=== PATIENT | male | born 1955 | race Caucasian/White ===

== ENCOUNTER 2022-03-04 07:59 | Emergency (ER) | payer OTHER, SELFPAY ==
[2022-03-04 08:07] VITALS: BP 158/76; PULSE 96; RESP 18; TEMP 36.6; O2SAT 98; BMI 24.4
[2022-03-04 08:09] VITALS: BP 130/72; PULSE 95; RESP 18; TEMP 36.6; O2SAT 98
--- NOTE | 2022-03-04 08:11 | XR_ITS ---
WS: [id number] AP portable erect, AP portable supine, 03/04/2022 Clinical Data: abd pain Comparison: KUB, 02/14/2007. Findings: There is an aortic iliac stent graft. There are vascular occlusion coils overlying the right side of the S1 vertebral body. The central portion of the abdomen shows a decreased amount of gas and there c ould be a mass in the central abdomen. The bowel gas is located in the periphery of the abdomen. Ther e is a moderate amount of fecal material. There are clips in the right upper quadrant from a cholecys tectomy. Midline sternotomy sutures are seen. No free air is seen beneath the diaphragms. XR/XR KUB portable [id number] Impression: 1. Decreased amount of gas in the central abdomen which could indicate a centra l abdominal mass. 2. Aortic stent graft.
[2022-03-04 08:41] LABS: Basophils % 0.3 %; Eosinophils # 0.1 10^3/uL (0.0-0.8); Eosinophils % 0.6 %; Hematocrit 37.9 % (42.0-52.0); Hemoglobin 11.6 g/dL (11.7-16.6); Mean Corpuscular HGB Conc 30.6 g/dL (30.0-36.0); Mean Corpuscular Hemoglobin 30.2 pg (28.0-34.0); Mean Corpuscular Volume 98.7 fl (80-94); Mean Platelet Volume 9.2 fL (7.4-10.4); Monocytes # 0.8 10^3/uL (0.2-0.9); Monocytes % 8.8 %; Neutrophils % 77.6 %; Nucleated Red Blood Cells % 0 %; Platelet Count 158 10^3/cmm (130-400); Red Blood Count 3.84 10^6/uL (4.1-5.3); Red Cell Distribution Width 16.4 % (12.1-15.1); White Blood Count 8.6 10^3/uL (4.0-10.0)
--- NOTE | 2022-03-04 08:43 | ED_ITS ---
HPI - Abdominal Pain General: Chief Complaint: Abdominal Pain Stated Complaint: Post op pain in abd Time Seen by Provider: 03/04/22 08:11 Source: patient Mode of arrival: ambulatory History of Present Illness: 67-year-old male who presents to the emergency room with complaints of abdominal discomfort. He has been significantly c onstipated states he has had a bowel movement for the last 4 days. He has tried MiraLAX and stool softening tablets but has not tried any stimulants. 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 He was transferred to a hospital in [place] where he underwent surgery he survived the episode of several grafts. The patient is concerned that something about the surgery may be limiting blood flow to his gut which is causing problems. He has not had any vomiting he has not had any hematochezia melena hematemesis or coffee-ground emesis. He has had a little bit of dysuria. MD elicited complaint: abdominal pain Pertinent past history: none Onset (ago): day(s) (4) Location: Diffuse Severity: moderate Quality: cramping Radiation: none Exacerbating factors: nothing Associated Symptoms: Reports bloating and constipation; Denies chills, coffee ground emesis, diarrhea, dysuria, fever(s), hematochezia, hematemesis, melena, nausea and vomiting Review of Systems Const: Denies: fever(s), chills, body aches, change in appetite, fatigue or malaise ENMT: Denies: throat pain, ear or mastoid pain, nasal discharge or nasal congestion Card: Denies: chest pain, edema, dyspnea on exertion or orthopnea Resp: Denies: dyspnea, productive cough or non-productive cough GI: Reports: abdominal pain, constipation and bloating; Denies: nausea, vomiting, hematemesis, coffee ground emesis, diarrhea, hematochezia or melena : Denies: flank pain, dysuria, urinary frequency or urinary urgency Skin/Breast: Denies: rash or pruritus PFSH ED PFSH: Medical History (Updated 03/04/22 @ 10:29 by Lazaro Bazan DO) Abdominal aortic aneurysm Diabetes mellitus Hyperlipidemia Hypertension Surgical History (Updated 03/04/22 @ 10:29 by Lazaro Bazan DO) H/O abdominal aortic aneurysm repair Social History (Updated 03/04/22 @ 10:30 by Lazaro Bazan DO) Smoking and tobacco status: former smoker Alcohol intake: former Physical Exam Const: GENERAL APPEARANCE: cooperative and comfortable ORIENTATION/CONSCIOUSNESS: Yes awake, Yes oriented to person, Yes oriented to place and Yes oriented to time HENMT: COMMON NORMALS: normocephalic, atraumatic and hearing grossly normal bilaterally HEAD & SCALP: normocephalic and atraumatic Resp: COMMON NORMALS: normal respiratory effort, No retractions, No use of accessory muscles and clear to auscultation bilaterally AUSCULTATION: clear to auscultation bilaterally Cardio: COMMON NORMALS: regular rate, regular rhythm and No murmurs present (Cardio) RATE: regular rate RHYTHM: regular rhythm GI: COMMON NORMALS: Soft to palpation and No hepatosplenomegaly present AUSCULTATION: Yes normoactive bowel sounds PALPATION: Yes Soft to palpation, No Tenderness to palpation present (GI), No Guarding due to palpation present (GI) and Yes No hepatosplenomegaly present OTHER: Supraumbilical wound defect is packed there is no evidence of induration drainage redness or erythema Extremity: COMMON NORMALS: normal to inspection, capillary refill normal, no clubbing, cyanosis or edema, no calf tenderness and no pedal edema Neuro: SENSORIUM/ORIENTATION: Yes oriented to person, Yes oriented to place and Yes oriented to time Skin: COMMON NORMALS: no rashes or lesions noted GENERAL SKIN EXAM: no rashes or lesions noted Course Vital Signs: Vital signs: Vital Signs Temperature 97.8 F 03/04/22 08:09 Pulse Rate 95 03/04/22 08:09 Respiratory Rate 18 03/04/22 08:51 Blood Pressure 130/72 03/04/22 08:09 Pulse Oximetry 98 03/04/22 08:51 Oxygen Delivery Me thod 03/04/22 08:51 MDM - Abdominal Pain Medical Decision Making Labs and imaging reviewed. Moderate constipation otherwise unremarkable. I did examine his abdominal wound looks good there is no redness no erythema no induration duration. We will discharge him home to use lactulose as needed return if he has further problems. Courage him to continue the MiraLAX and stool softeners for preventative measures for constipation in the future. Medical Records I reviewed the patient's medical records. Lab Data I reviewed the patient's lab results. : 03/04/22 08:35 03/04/22 08:35 Labs/Radiology: Radiology Impressions KUB X-Ray 03/04/22 08:11 Impression: 1. Decreased amount of gas in the central abdomen which could indicate a central abdominal mass. 2. Aortic stent graft. Laboratory Results WBC 8.6 10^3/uL (4.0-10.0) 03/04/22 08:35 RBC 3.84 10^6/uL (4.1-5.3) L 03/04/22 08:35 Hgb 11.6 g/dL (11.7-16.6) L 03/04/22 08:35 Hct 37.9 % (42.0-52.0) L 03/04/22 08:35 MCV 98.7 fl (80-94) H 03/04/22 08:35 MCH 30.2 pg (28.0-34.0) 03/04/22 08:35 MCHC 30.6 g/dL (30.0-36.0) 03/04/22 08:35 RDW 16.4 % (12.1-15.1) H 03/04/22 08:35 Plt Count 158 10^3/cmm (130-400) 03/04/22 08:35 MPV 9.2 fL (7.4-10.4) 03/04/22 08:35 Neut % (Auto) 77.6 % 03/04/22 08:35 Lymph % (Auto) 12.0 % 03/04/22 08:35 [place] % (Auto) 8.8 % 03/04/22 08:35 Eos % (Auto) 0.6 % 03/04/22 08:35 Baso % (Auto) 0.3 % 03/04/22 08:35 Neut # (Auto) 6.70 10^3/uL (1.8-7.7) 03/04/22 08:35 Lymph # (Auto) 1.0 10^3/uL (0.8-4.8) 03/04/22 08:35 [place] # (Auto) 0.8 10^3/uL (0.2-0.9) 03/04/22 08:35 Eos # (Auto) 0.1 10^3/uL (0.0-0.8) 03/04/22 08:35 Baso # (Auto) 0.0 10^3/uL (0.0-0.1) 03/04/22 08:35 Nucleated RBC % (auto) 0 % 03/04/22 08:35 Nucleated RBCs # 0.0 /100WBC 03/04/22 08:35 Sodium 135 mmol/L (136-145) L 03/04/22 08:35 Potassium 4.3 mmol/L (3.5-5.1) 03/04/22 08:35 Chloride 100 mmol/L (98-107) 03/04/22 08:35 Carbon Dioxide 22 mmol/L (22-29) 03/04/22 08:35 Anion Gap 17.3 (5-19) 03/04/22 08:35 BUN 20 mg/dL (8-23) 03/04/22 08:35 Creatinine 1.3 mg/dL (0.7-1.2) H 03/04/22 08:35 GFR Calculation 54.7 mL/min (90-130) L 03/04/22 08:35 Glucose 204 mg/dL (65-115) H 03/04/22 08:35 Calculated Osmolality 288 mOsm/kg (285-295) 03/04/22 08:35 Calcium 10.2 mg/dL (8.5-10.5) 03/04/22 08:35 Total Bilirubin 0.7 mg/dL (0.15-1.2) 03/04/22 08:35 AST 12 U/L (0-40) 03/04/22 08:35 ALT 8 U/L (0-41) 03/04/22 08:35 Alkaline Phosphatase 80 U/L (40-130) 03/04/22 08:35 Total Protein 8.0 g/dL (6.6-8.7) 03/04/22 08:35 Albumin 4.0 g/dL (3.5-5.2) 03/04/22 08:35 Globulin 4.0 g/dL (1.3-4.6) 03/04/22 08:35 Lipase 70 U/L (13-60) H 03/04/22 08:35 Urine Color Yellow (Yellow) 03/04/22 09:06 Urine Appearance Clear (CLEAR) 03/04/22 09:06 Urine pH 5 (5-7) 03/04/22 09:06 Ur Specific [place] 1.020 (1.005-1.030) 03/04/22 09:06 Urine Protein 2+ (Negative) H 03/04/22 09:06 Urine Glucose (UA) 4+ (Normal) H 03/04/22 09:06 Urine Ketones 1+ (Negative) H 03/04/22 09:06 Urine Blood 2+ (Negative) H 03/04/22 09:06 Urine Nitrate Negative (Negative) 03/04/22 09:06 Urine Bilirubin Neg (Negative) 03/04/22 09:06 Urine Urobilinogen Norm mg/dL (Negative) 03/04/22 09:06 Ur Leukocyte Esterase Negative (Negative) 03/04/22 09:06 Urine RBC 0-4 /hpf (0-2) H 03/04/22 09:06 Urine WBC 0-4 /hpf (0-5) H 03/04/22 09:06 Ur Squamous Epith Cells 0-4 /hpf (0-5) H 03/04/22 09:06 Amorphous Sediment Not Reportable 03/04/22 09:06 Urine Bacteria Trace /hpf (NONE) 03/04/22 09:06 Hyaline Casts 5-10 /lpf H 03/04/22 09:06 Discharge Plan Discharge Clinical Impression: Constipation Prescriptions: New lactulose 10 gram/15 mL solution 30 g PO Q4H PRN (Reason: laxative effect) 1 Days Qty: 540 0RF Rx Instructions: until desired laxative effect No Action multivitamin Tablet 1 tab PO DAILY atorvastatin 40 mg tablet 40 mg PO DAILY Miralax 17 gram Powder In Packet 17 g PO DAILY PRN (Reason: Constipation) lisinopril 20 mg tablet 20 mg PO BID pioglitazone 45 mg tablet 45 mg PO DAILY amlodipine 5 mg tablet 5 mg PO DAILY tramadol 50 mg tablet 50 - 100 mg PO Q4H PRN (Reason: Pain) glimepiride 2 mg tablet 2 mg PO DAILY Colace 100 mg Capsule 100 mg PO DAILY oxycodone 5 mg tablet 5 mg PO Q6H PRN (Reason: Pain) metoprolol tartrate 25 mg tablet 12.5 mg PO BID fenofibrate nanocrystallized 145 mg tablet 145 mg PO DAILY Jentadueto 2.5-1,000 mg tablet 1 tab PO BID Discharge Orders: Discharge ED (Routine); Ordered 03/04/22 Ordered By: Lazaro Bazan Discharge Diet: Full LIquid Discharge Activity: Increase activity as tolerated Activity Restrictions/Additional Instructions: Use lactulose as a stimulant to relieve the constipation would use a dose every 4 hours until desired effect achieved. Continue stool softeners and/or MiraLAX as a preventative measure for constipation. Coding Level of Care Code ED Bleach Packer for Lencho Redmond
[2022-03-04 08:51] VITALS: RESP 18; O2SAT 98
--- NOTE | 2022-03-04 08:52 | PC.PHAR ---
pt and pts states pt hasnt been taking plavix 75mg daily (filled 01/12/22) and 81mg aspirin daily since december states the dr told them to not take- states pt has appt with Feb-
[2022-03-04 09:02] LABS: Alanine Aminotransferase 8 U/L (0-41); Alkaline Phosphatase 80 U/L (40-130); Anion Gap 17.3 (5-19); Aspartate Amino Transferase 12 U/L (0-40); Blood Urea Nitrogen 20 mg/dL (8-23); Calcium 10.2 mg/dL (8.5-10.5); Carbon Dioxide 22 mmol/L (22-29); Chloride 100 mmol/L (98-107); Glomerular Filtration Rate 54.7 mL/min (90-130); Glucose 204 mg/dL (65-115); Lipase 70 U/L (13-60); Osmolality Calculated 288 mOsm/kg (285-295); Potassium 4.3 mmol/L (3.5-5.1); Sodium 135 mmol/L (136-145); Total Bilirubin 0.7 mg/dL (0.15-1.2)
[2022-03-04 09:20] LABS: Urine Appearance Clear (CLEAR); Urine Color Yellow (Yellow)
[2022-03-04 09:21] LABS: Add Urine Microscopic? YES; Bilirubin Urine Neg (Negative); Blood Urine 2+ (Negative); Glucose Urine UA 4+ (Normal); Ketones Urine 1+ (Negative); Leukocyte Esterase Urine Negative (Negative); Nitrate Urine Negative (Negative); Protein Urine 2+ (Negative); Urobilinogen Urine Norm (Negative); pH Urine 5 (5-7)
[2022-03-04 09:26] LABS: Bacteria Urine TRACE /hpf; RBC Urine 0-4 /hpf (0-2); Squamous Epithelial Cell Urine 0-4 /hpf (0-5); WBC Urine 0-4 /hpf (0-5)
[2022-03-04 09:27] LABS: Add Urine Culture? No
== END 2022-03-04 10:26 | disposition home or self-care (01) ==
PROVIDERS: Emergency Provider Family Medicine; PCP Nurse Practitioner Family
DX: K59.00 Constipation, unspecified (principal); Z79.84 Long term (current) use of oral hypoglycemic drugs; E11.9 Type 2 diabetes mellitus without complications; E78.5 Hyperlipidemia, unspecified; I10 Essential (primary) hypertension; Z87.891 Personal history of nicotine dependence
CPT/HCPCS: 74018; 80053; 81001; 83690; 85025; 99284

== ENCOUNTER → 2022-03-07 11:36 | Outpatient (BNVA) | payer OTHER, SELFPAY | PROVIDERS: PCP Nurse Practitioner Family; Visit Provider Nurse Practitioner Family | DX: Z01.89 Encounter for other specified special examinations (principal) | CPT/HCPCS: 87070; 87077; 87176; 87186; 87205 ==

== ENCOUNTER 2022-04-30 10:51 | Outpatient (CLI) | payer OTHER, SELFPAY | END 2022-04-30 10:52 | disposition home or self-care (01) | LOC: LAB 10:52 | PROVIDERS: PCP Nurse Practitioner Family; Visit Provider Nurse Practitioner Family | DX: Z48.812 Encounter for surgical aftercare following surgery on the circulatory system (principal) | CPT/HCPCS: 87070; 87077; 87186 ==

== ENCOUNTER 2022-09-20 07:40 | Emergency (ER) | payer OTHER, SELFPAY ==
[2022-09-20 08:06] VITALS: BP 165/89; PULSE 81; RESP 17; O2SAT 99
[2022-09-20] MEDS: ketorolac 30 mg/mL INJ IVP (08:28)
[2022-09-20] MEDS: dexamethasone 10 mg/mL INJ IVP (08:28)
[2022-09-20] MEDS: orphenadrine 30 mg/mL Inj 2 mL 60 MG IVP (08:28)
[2022-09-20 08:39] VITALS: BP 165/89
--- NOTE | 2022-09-20 08:47 | W.ED.EXTPRO ---
HPI - Extremity Problem General: Chief complaint: Extremity Problem,Nontraumatic Stated complaint: Left Leg sciatic Nerve Time Seen by Provider: 09/20/22 07:52 Source: patient Mode of arrival: ambulatory History of Present Illness: 67-year-old male presents emergency room complaining of pain in the left lower back radiating to his buttock and down into his leg and lateral aspect of his leg. Began overnight is gotten progressively worsened. He has normal sensation in his lower extremities he is not having difficulty with bowel or bladder control MD Complaint: extremity pain Onset (ago): day(s) Pain Consistency: constant Location: left Quality: sharp Radiation: none and distal Relieving factors: nothing Exacerbating factors: nothing Associated symptoms: Deny arthralgias, chest pain, fever(s), myalgias, rash or short of breath Review of Systems Const: Denies: fever(s), chills, fatigue or malaise ENMT: Denies: throat pain, ear or mastoid pain, nasal discharge or nasal congestion Card: Denies: chest pain, palpitations, irregular heart rhythm or edema Resp: Denies: dyspnea, productive cough or non-productive cough GI: Denies: abdominal pain, nausea, vomiting, hematemesis, coffee ground emesis, diarrhea, constipation, bloating, hematochezia or melena : Denies: flank pain, dysuria, urinary frequency or urinary urgency Skin/Breast: Reports: pruritus; Denies: rash [facility] ED PFSH: Medical History Abdominal aortic aneurysm Diabetes mellitus Hyperlipidemia Hypertension Surgical History H/O abdominal aortic aneurysm repair Social History Smoking and tobacco status: former smoker Alcohol intake: former Physical Exam Const: COMMON NORMALS: no acute distress GENERAL APPEARANCE: cooperative and comfortable ORIENTATION/CONSCIOUSNESS: Yes awake, Yes oriented to person, Yes oriented to place and Yes oriented to time HENMT: COMMON NORMALS: normocephalic, atraumatic and hearing grossly normal bilaterally HEAD & SCALP: normocephalic and atraumatic Resp: COMMON NORMALS: normal respiratory effort, No retractions, No use of accessory muscles and clear to auscultation bilaterally AUSCULTATION: clear to auscultation bilaterally Cardio: COMMON NORMALS: regular rate, regular rhythm and No murmurs present (Cardio) RATE: regular rate RHYTHM: regular rhythm GI: COMMON NORMALS: Soft to palpation and No hepatosplenomegaly present AUSCULTATION: Yes normoactive bowel sounds PALPATION: Yes Soft to palpation, No Tenderness to palpation present (GI), No Guarding due to palpation present (GI) and Yes No hepatosplenomegaly present Extremity: COMMON NORMALS: normal to inspection, capillary refill normal, no clubbing, cyanosis or edema, no calf tenderness and no pedal edema OTHER: Sensation motor strength lower extremities 5/5. Deep tendon reflexes +2/4 at the patellar tendon dorsum plantarflexion strength is 5 of 5. Neuro: SENSORIUM/ORIENTATION: Yes oriented to person, Yes oriented to place and Yes oriented to time Skin: COMMON NORMALS: no rashes or lesions noted GENERAL SKIN EXAM: no rashes or lesions noted Course Vital Signs: Vital signs: Vital Signs Pulse Rate 63 09/20/22 09:49 Respiratory Rate 18 09/20/22 09:49 Blood Pressure 144/99 09/20/22 09:49 Pulse Oximetry 97 09/20/22 09:49 Oxygen Delivery Me thod 09/20/22 08:06 MDM - Extremity (Nontraumatic) Medical Decision Making Significant improvement in pain with treatments given in the emergency room discharge home with steroid taper anti-inflammatories and muscle relaxers. Medical Records I reviewed the patient's medical records. Lab Data I reviewed the patient's lab results. Discharge Plan Discharge Patient Disposition: Home Clinical Impression: Acute left lumbar radiculopathy Condition: Stable Prescriptions: New prednisone 20 mg tablet 20 mg PO TID Qty: 15 0RF Rx Instructions: 1 p.o. 3 times daily x3 days, 1 p.o. twice daily x2 days, 1 p.o. daily x2 days diclofenac sodium 75 mg tablet,delayed release (DR/EC) 75 mg PO Q12H PRN (Reason: pain) Qty: 20 0RF tizanidine 4 mg capsule 4 mg PO Q6H PRN (Reason: muscle spasticity) Qty: 20 0RF Rx Instructions: do not exceed 3 doses per 24 hrs Lyrica 75 mg capsule 75 mg PO BID Qty: 60 0RF No Action levofloxacin 500 mg tablet 500 mg PO DAILY Qty: 10 0RF ciprofloxacin HCl [Cipro] 500 mg tablet 500 mg PO BID 10 Days Qty: 20 0RF multivitamin Tablet 1 tab PO DAILY atorvastatin 40 mg tablet 40 mg PO DAILY Miralax 17 gram Powder In Packet 17 g PO DAILY PRN (Reason: Constipation) lisinopril 20 mg tablet 20 mg PO BID pioglitazone 45 mg tablet 45 mg PO DAILY amlodipine 5 mg tablet 5 mg PO DAILY tramadol 50 mg tablet 50 - 100 mg PO Q4H PRN (Reason: Pain) glimepiride 2 mg tablet 2 mg PO DAILY Colace 100 mg Capsule 100 mg PO DAILY oxycodone 5 mg tablet 5 mg PO Q6H PRN (Reason: Pain) metoprolol tartrate 25 mg tablet 12.5 mg PO BID fenofibrate nanocrystallized 145 mg tablet 145 mg PO DAILY Jentadueto 2.5-1,000 mg tablet 1 tab PO BID Discharge Orders: Discharge ED (Routine); Ordered 09/20/22 Ordered By: Lazaro Bazan Referrals: Annika Richardson APN [Primary Care Provider] - Discharge Diet: Usual diet Discharge Activity: Increase activity as tolerated Patient Instructions: Opioid Safety, Pain Management Activity Restrictions/Additional Instructions: You are seen today for back pain with radicular pain into the left leg. Discharge home to start Lyrica 75 mg twice daily scheduled prednisone taper begin tomorrow. Use diclofenac and tizanidine as needed. Case management make arrangements for you to follow-up with the orthopedic spine clinic. Coding Level of Care Code ED Civil Engineer'S Aide for Lencho Redmond
[2022-09-20 09:49] VITALS: BP 144/99; PULSE 63; RESP 18; O2SAT 97
== END 2022-09-20 09:51 | disposition home or self-care (01) ==
PROVIDERS: Emergency Provider Family Medicine; PCP Nurse Practitioner Family
DX: M54.16 Radiculopathy, lumbar region (principal); E11.9 Type 2 diabetes mellitus without complications; E78.5 Hyperlipidemia, unspecified; I10 Essential (primary) hypertension; Z87.891 Personal history of nicotine dependence
CPT/HCPCS: 96374; 96375; 99284; J1100; J1885; J2360

== ENCOUNTER 2023-01-11 23:37 | Emergency (ER) | payer OTHER, SELFPAY ==
[2023-01-11 23:46] VITALS: BP 140/65; PULSE 109; RESP 16; TEMP 36.7; O2SAT 96; BMI 21.6
[2023-01-12 00:28] LABS: Basophils % 0.2 %; Eosinophils % 0.2 %; Hematocrit 29.8 % (42.0-52.0); Hemoglobin 8.9 g/dL (11.7-16.6); Lymphocytes # 0.3 10^3/uL (0.8-4.8); Lymphocytes % 4.8 %; Mean Corpuscular HGB Conc 29.9 g/dL (30.0-36.0); Mean Corpuscular Hemoglobin 29.8 pg (28.0-34.0); Mean Corpuscular Volume 99.7 fl (80-94); Mean Platelet Volume 10.6 fL (7.4-10.4); Monocytes # 0.1 10^3/uL (0.2-0.9); Neutrophils # 6.03 10^3/uL (1.8-7.7); Neutrophils % 92.5 %; Nucleated Red Blood Cells % 0 %; Platelet Count 99 10^3/cmm (130-400); Red Blood Count 2.99 10^6/uL (4.1-5.3); Red Cell Distribution Width 17.2 % (12.1-15.1); White Blood Count 6.5 10^3/uL (4.0-10.0)
[2023-01-12 00:46] LABS: Alanine Aminotransferase 22 U/L (0-41); Albumin Level 3.2 g/dL (3.5-5.2); Alkaline Phosphatase 127 U/L (40-130); Anion Gap 16.5 (5-19); Aspartate Amino Transferase 15 U/L (0-40); Blood Urea Nitrogen 39 mg/dL (8-23); Calcium 9.4 mg/dL (8.5-10.5); Carbon Dioxide 26 mmol/L (22-29); Chloride 97 mmol/L (98-107); Globulin 3.2 g/dL (1.3-4.6); Glomerular Filtration Rate 74.1 mL/min (90-130); Glucose 296 mg/dL (65-115); Lipase 30 U/L (13-60); Osmolality Calculated 300 mOsm/kg (285-295); Potassium 4.5 mmol/L (3.5-5.1); Sodium 135 mmol/L (136-145); Total Bilirubin 0.5 mg/dL (0.15-1.2); Total Protein 6.4 g/dL (6.6-8.7)
--- NOTE | 2023-01-12 01:10 | CTR_ITS ---
PROCEDURE INFORMATION: Exam: CT Abdomen And Pelvis With Contrast Exam date and time: 01/12/2023 1:20 AM Age: 67 years old Clinical indication: Abdominal pain; Generalized; Prior surgery; Surgery date: 6+ months; Surgery type: Aaa repair, cholecystectomy; Additional info: Abd pain TECHNIQUE: Imaging protocol: Computed tomography of the abdomen and pelvis with contrast. Radiation optimization: All CT scans at this facility use at least one of these dose optimization techniques: automated exposure control; mA and/or kV adjustment per patient size (includes targeted exams where dose is matched to clinical indication); or iterative reconstruction. Contrast material: OMNI 350; Contrast volume: 100 ml; Contrast route: INTRAVENOUS (IV); REPORTING DATA: Count of CT and Cardiac NM exams in prior 12 months: This patient has received 0 known CTs and 0 known cardiac nuclear medicine studies in the 12 months prior to the current study. COMPARISON: CR XR KUB portable [id number] 03/04/2022 8:19 AM RADIATION DOSE METRICS: Total DLP (mGy-cm): 861.51 FINDINGS: Lungs: The visualized lung bases are devoid of infiltrates, effusions . There are no pneumothoraces. Heart: There is no pericardial effusion. Liver: Normal. No mass. Gallbladder and bile ducts: There is mild intrahepatic ductal dilatation. Patient is status post cholecystectomy. The common bile duct measures 5.4 mm which is within normal limits for the patient's age. Pancreas: Pancreas is unremarkable. Spleen: The spleen is bulbous in its posteromedial aspect with hypodensity, this measures approximally 63.7 x 60.1 mm, this may represent an infarct however an underlying abscess can not be excluded. Recommend clinical correlation. Adrenal glands: The adrenal glands are within normal limits. Kidneys and ureters: The kidneys enhance uniformly. There are few subcentimeter hypodensities in the renal cortex, statistically, these are considered to be cysts. There is no hydroureter or obstructing renal stone noted. There is no hydroureter. The urinary bladder is moderately distended with contrast layering within it. Stomach and bowel: The stomach is minimally distended with thick aranda. There are no abnormally dilated bowel loops. There is diverticular disease with no evidence of diverticulitis. The rectum is full of feces. There is evidence of prior bowel surgical clips in the region of the cecum. There is an extensive amount of feces in the entire colon. Appendix: No evidence of appendicitis. Intraperitoneal space: Unremarkable. No free air. No significant fluid collection. Vasculature: There is diffuse atherosclerotic disease. The origins of the celiac, SMA, renal arteries are patent. There is an infrarenal abdominal aortic stent graft in position. There is good apposition proximally. The aneurysmal sac measures 55.0 x 51.6 mm. 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 The limbs of the stent graft are patent. As this was not a noncontrast and arterial phase study, the endoleak can not be commented on accurately. 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 The left common iliac artery with with the endograft limb measures 14.4 mm. There has been coiling of the right internal iliac artery. The remainder of the iliac arteries are patent but severely diseased distally. The portal vein is patent. Lymph nodes: Unremarkable. No enlarged lymph nodes. Urinary bladder: See Kidneys and ureters finding. Reproductive: The prostate measures 41.4 mm and is prominent. Bones/joints: There are multiple lytic lesions noted in the iliac bones with the left being greater than the right. There is a lytic lesions noted in the spine. Soft tissues: Unremarkable. CT/CT abdomen pelvis w con* [id number] IMPRESSION: 1. Bulbous spleen with a focal area of hypodensity, this measures 63.7 x 60.1 mm, this may represent ischemia or an abscess, recommend clinical correlation. 2. Status post endovascular aneurysm repair (the stent graft is patent and there adequate seal zones), currently the residual aneurysmal sac measures 55.0 x 51.6 mm. There is evidence of an endoleak however, it can not be adequately named as this was not done in 3 phases. 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 There is no evidence of a leak. 3. Multiple lytic lesions in the iliac bones and the spine. COMMENTS: Consistent with the [employer]'s Incidental Findings Committee white paper (J Am Roger Radiol 2018): Any incidental renal lesion less than 1 cm or classified as too small to characterize, or any incidental cystic renal lesion characterized as simple-appearing, is likely benign. No follow-up imaging is recommended for these lesions per consensus recommendations based on imaging criteria.
--- NOTE | 2023-01-12 01:15 | W.ED.ABDPA2 ---
HPI - Abdominal Pain General: Chief Complaint: Abdominal Pain Stated Complaint: abd pain Time Seen by Provider: 01/12/23 00:39 Source: patient Mode of arrival: ambulatory Limitations: no limitations History of Present Illness: 67-year-old male states he has been having abdominal pain throughout the day. He states diffuse pain he rates a 7 out of 10. 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 States he feels like he is full of air he has not had any vomiting but has had nausea denies any fever denies any worsening proving factors. Associated Symptoms: Denies chills, diarrhea, fever(s), nausea and vomiting Review of Systems Const: Denies: fever(s), chills, body aches or change in appetite ENMT: Denies: throat pain or dental pain Card: Denies: chest pain Resp: Denies: dyspnea GI: Reports: abdominal pain; Denies: nausea, vomiting or diarrhea Musc: Denies: neck pain or back pain Skin/Breast: Denies: rash Neuro: Denies: headache(s) PFSH ED PFSH: Medical History Abdominal aortic aneurysm Diabetes mellitus Hyperlipidemia Hypertension Surgical History H/O abdominal aortic aneurysm repair Social History Smoking and tobacco status: former smoker Alcohol intake: former Physical Exam Const: COMMON NORMALS: no acute distress, patient oriented x3 and healthy appearing HENMT: COMMON NORMALS: normocephalic and atraumatic HEAD & SCALP: normocephalic and atraumatic Neck/C-Spine: COMMON NORMALS: full ROM and supple Chest: COMMONS NORMALS: normal inspection of the chest and normal palpation of entire chest wall Resp: COMMON NORMALS: normal respiratory effort, No retractions, No use of accessory muscles and clear to auscultation bilaterally AUSCULTATION: clear to auscultation bilaterally Cardio: COMMON NORMALS: regular rate, regular rhythm and No murmurs present (Cardio) RATE: regular rate RHYTHM: regular rhythm GI: COMMON NORMALS: Normal to inspection, nondistended, normoactive bowel sounds present, Soft to palpation and no masses PALPATION: Yes Soft to palpation OTHER: diffuse tenderness Extremity: COMMON NORMALS: normal to inspection and full ROM Neuro: COMMON NORMALS: patient oriented x3, moves all extremities and no focal motor deficits Psych: COMMON NORMALS: mental status grossly normal, Normal thought process present and cooperative THOUGHT PROCESS: Normal thought process present Skin: COMMON NORMALS: no rashes or lesions noted and no wounds GENERAL SKIN EXAM: no rashes or lesions noted Course Vital Signs: Vital signs: Vital Signs Temperature 98.0 F 01/11/23 23:46 Pulse Rate 88 01/12/23 03:00 Respiratory Rate 18 01/12/23 03:00 Blood Pressure 118/65 01/12/23 03:00 Pulse Oximetry 98 01/12/23 03:00 MDM - Abdominal Pain Medical Decision Making Patient presents here with pain likely from his lytic lesions on his left iliac and from his radiation blood works normal CT shows hypodensity in the spleen he has no pain over his spleen to palpation his white count is normal no signs of abscess patient is stable for discharge follow-up PCP and return if worsening Lab Data 01/12/23 00:20 01/12/23 00:20 Labs/Radiology: Radiology Impressions Abdomen/Pelvis CT 01/12/23 01:10 IMPRESSION: 1. Bulbous spleen with a focal area of hypodensity, this measures 63.7 x 60.1 mm, this may represent ischemia or an abscess, recommend clinical correlation. 2. Status post endovascular aneurysm repair (the stent graft is patent and there adequate seal zones), currently the residual aneurysmal sac measures 55.0 x 51.6 mm. There is evidence of an endoleak however, it can not be adequately named as this was not done in 3 phases. 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 There is no evidence of a leak. 3. Multiple lytic lesions in the iliac bones and the spine. COMMENTS: Consistent with the [employer]'s Incidental Findings Committee white paper (J Am Roger Radiol 2018): Any incidental renal lesion less than 1 cm or classified as too small to characterize, or any incidental cystic renal lesion characterized as simple-appearing, is likely benign. No follow-up imaging is recommended for these lesions per consensus recommendations based on imaging criteria. Laboratory Results WBC 6.5 10^3/uL (4.0-10.0) 01/12/23 00:20 RBC 2.99 10^6/uL (4.1-5.3) L 01/12/23 00:20 Hgb 8.9 g/dL (11.7-16.6) L 01/12/23 00:20 Hct 29.8 % (42.0-52.0) L 01/12/23 00:20 MCV 99.7 fl (80-94) H 01/12/23 00:20 MCH 29.8 pg (28.0-34.0) 01/12/23 00:20 MCHC 29.9 g/dL (30.0-36.0) L 01/12/23 00:20 RDW 17.2 % (12.1-15.1) H 01/12/23 00:20 Plt Count 99 10^3/cmm (130-400) L 01/12/23 00:20 MPV 10.6 fL (7.4-10.4) H 01/12/23 00:20 Neut % (Auto) 92.5 % 01/12/23 00:20 Lymph % (Auto) 4.8 % 01/12/23 00:20 [place] % (Auto) 2.0 % 01/12/23 00:20 Eos % (Auto) 0.2 % 01/12/23 00:20 Baso % (Auto) 0.2 % 01/12/23 00:20 Neut # (Auto) 6.03 10^3/uL (1.8-7.7) 01/12/23 00:20 Lymph # (Auto) 0.3 10^3/uL (0.8-4.8) L 01/12/23 00:20 [place] # (Auto) 0.1 10^3/uL (0.2-0.9) L 01/12/23 00:20 Eos # (Auto) 0.0 10^3/uL (0.0-0.8) 01/12/23 00:20 Baso # (Auto) 0.0 10^3/uL (0.0-0.1) 01/12/23 00:20 Nucleated RBC % (auto) 0 % 01/12/23 00:20 Nucleated RBCs # 0.0 /100WBC 01/12/23 00:20 Sodium 135 mmol/L (136-145) L 01/12/23 00:20 Potassium 4.5 mmol/L (3.5-5.1) 01/12/23 00:20 Chloride 97 mmol/L (98-107) L 01/12/23 00:20 Carbon Dioxide 26 mmol/L (22-29) 01/12/23 00:20 Anion Gap 16.5 (5-19) 01/12/23 00:20 BUN 39 mg/dL (8-23) H 01/12/23 00:20 Creatinine 1.0 mg/dL (0.7-1.2) 01/12/23 00:20 GFR Calculation 74.1 mL/min (90-130) L 01/12/23 00:20 Glucose 296 mg/dL (65-115) H 01/12/23 00:20 Calculated Osmolality 300 mOsm/kg (285-295) H 01/12/23 00:20 Calcium 9.4 mg/dL (8.5-10.5) 01/12/23 00:20 Total Bilirubin 0.5 mg/dL (0.15-1.2) 01/12/23 00:20 AST 15 U/L (0-40) 01/12/23 00:20 ALT 22 U/L (0-41) 01/12/23 00:20 Alkaline Phosphatase 127 U/L (40-130) 01/12/23 00:20 Total Protein 6.4 g/dL (6.6-8.7) L 01/12/23 00:20 Albumin 3.2 g/dL (3.5-5.2) L 01/12/23 00:20 Globulin 3.2 g/dL (1.3-4.6) 01/12/23 00:20 Lipase 30 U/L (13-60) 01/12/23 00:20 Discharge Plan Discharge Patient Disposition: Home Clinical Impression: Abdominal pain Condition: Stable Prescriptions: No Action levofloxacin 500 mg tablet 500 mg PO DAILY Qty: 10 0RF ciprofloxacin HCl [Cipro] 500 mg tablet 500 mg PO BID 10 Days Qty: 20 0RF multivitamin Tablet 1 tab PO DAILY atorvastatin 40 mg tablet 40 mg PO DAILY Miralax 17 gram Powder In Packet 17 g PO DAILY PRN (Reason: Constipation) lisinopril 20 mg tablet 20 mg PO BID pioglitazone 45 mg tablet 45 mg PO DAILY amlodipine 5 mg tablet 5 mg PO DAILY tramadol 50 mg tablet 50 - 100 mg PO Q4H PRN (Reason: Pain) glimepiride 2 mg tablet 2 mg PO DAILY Colace 100 mg Capsule 100 mg PO DAILY oxycodone 5 mg tablet 5 mg PO Q6H PRN (Reason: Pain) metoprolol tartrate 25 mg tablet 12.5 mg PO BID fenofibrate nanocrystallized 145 mg tablet 145 mg PO DAILY Jentadueto 2.5-1,000 mg tablet 1 tab PO BID prednisone 20 mg tablet 20 mg PO TID Qty: 15 0RF Rx Instructions: 1 p.o. 3 times daily x3 days, 1 p.o. twice daily x2 days, 1 p.o. daily x2 days diclofenac sodium 75 mg tablet,delayed release (DR/EC) 75 mg PO Q12H PRN (Reason: pain) Qty: 20 0RF tizanidine 4 mg capsule 4 mg PO Q6H PRN (Reason: muscle spasticity) Qty: 20 0RF Rx Instructions: do not exceed 3 doses per 24 hrs Lyrica 75 mg capsule 75 mg PO BID Qty: 60 0RF Discharge Orders: Discharge ED (Routine); Ordered 01/12/23 Ordered By: Elyssa Yeh Referrals: Annika Richardson APN [Primary Care Provider] - 1-3 days Discharge Diet: Advance as tolerated Discharge Activity: Resume usual activity Patient Instructions: Abdominal Pain (ED) Coding Level of Care Code ED Sport Psychologist for Lencho Redmond
[2023-01-12] MEDS: iohexol 350 mg/mL 500 mL Btl (per mL) IV (01:17)
[2023-01-12 01:42] VITALS: RESP 16
[2023-01-12] MEDS: ondansetron 2 mg/ML SDV 2 mL 4 MG IVP (01:42)
[2023-01-12] MEDS: HYDROmorphone 1 mg/mL INJ 1 mL IVP (01:42)
[2023-01-12 01:44] VITALS: BP 145/75; PULSE 96; RESP 16; O2SAT 99
[2023-01-12 03:00] VITALS: BP 118/65; PULSE 88; RESP 18; O2SAT 98
== END 2023-01-12 03:07 | disposition home or self-care (01) ==
PROVIDERS: Emergency Provider Emergency Medicine; PCP Nurse Practitioner Family
DX: R10.9 Unspecified abdominal pain (principal); Z79.84 Long term (current) use of oral hypoglycemic drugs; Z79.899 Other long term (current) drug therapy; E11.9 Type 2 diabetes mellitus without complications; E78.5 Hyperlipidemia, unspecified; I10 Essential (primary) hypertension; Z87.891 Personal history of nicotine dependence; Z85.830 Personal history of malignant neoplasm of bone
CPT/HCPCS: 36415; 74177; 80053; 83690; 85025; 96374; 96375; 99285; J1170; J2405; Q9967

== ENCOUNTER 2023-03-06 18:51 | Emergency (ER) | payer OTHER, SELFPAY ==
[2023-03-06 18:53] VITALS: BP 94/55; PULSE 84; RESP 18; TEMP 36.7; O2SAT 96; BMI 25.1
[2023-03-06 19:59] VITALS: BP 75/47; PULSE 77; RESP 20; O2SAT 94
--- NOTE | 2023-03-06 20:10 | XRR_ITS ---
PROCEDURE INFORMATION: Exam: XR Abdomen Exam date and time: 03/06/2023 8:23 PM Age: 68 years old Clinical indication: Constipation; Additional info: Constipation, swelling TECHNIQUE: Imaging protocol: Radiologic exam of the abdomen. Views: Frontal supine view of the abdomen. 1 View. COMPARISON: CT abdomen pelvis w con* [id number] 01/12/2023 1:20 AM FINDINGS: Tubes, catheters and devices: Embolization coils in the right internal iliac artery are stable in position. Heart/Mediastinum: There is an aortobi-iliac endovascular stent. Gastrointestinal tract: No evidence for bowel obstruction or perforation. Intraperitoneal space: No free intraperitoneal air. Organs: Stable findings consistent with a previous cholecystectomy with surgical clips in the right upper quadrant. No organomegaly. Vasculature: Atherosclerotic changes in the visualized arteries. Bones/joints: Degenerative changes in the spine, sacroiliac joints, and hips. XR/XR abdomen 1V* [id number] IMPRESSION: 1. No evidence for bowel obstruction or perforation. 2. Incidental/nonacute findings are listed in the report.
--- NOTE | 2023-03-06 20:10 | XRR_ITS ---
PROCEDURE INFORMATION: Exam: XR Chest Exam date and time: 03/06/2023 8:22 PM Age: 68 years old Clinical indication: Other: Edema TECHNIQUE: Imaging protocol: Radiologic exam of the chest. Views: 1 view. COMPARISON: CT abdomen pelvis w con* [id number] 01/12/2023 1:20 AM FINDINGS: Tubes, catheters and devices: Right upper extremity PICC with the tip at the superior vena cava. Lungs: Mild interstitial pulmonary edema with superimposed atelectasis versus pneumonia in the right middle lobe, left lingula, and right and left lower lobes. Pleural spaces: Moderate right and small left pleural effusions. No pneumothorax. Heart/Mediastinum: Stable mild enlargement of the cardiac silhouette. Mediastinal contours are unremarkable. Bones/joints: Poststernotomy changes in the chest. Patient has had a previous fusion in the cervical and upper thoracic spine. Degenerative changes in the spine and shoulders. Bones are diffusely osteopenic. XR/XR chest 1V portable [id number] IMPRESSION: 1. Mild interstitial pulmonary edema with superimposed atelectasis versus pneumonia in the right middle lobe, left lingula, and right and left lower lobes. Recommend followup chest imaging to insure resolution of these findings. 2. Moderate right and small left pleural effusions. 3. Right upper extremity PICC with the tip at the superior vena cava. 4. Incidental/nonacute findings are listed in the report.
--- NOTE | 2023-03-06 20:11 | USR_ITS ---
PROCEDURE INFORMATION: Exam: US Scrotum Exam date and time: 03/06/2023 9:05 PM Age: 68 years old Clinical indication: Edema; Prior surgery; Surgery date: 1-6 months; Surgery type: Patient had back surgery 6 weeks ago. Now presenting with anasarca, diminished bowel sounds, and profound scrotal swelling. TECHNIQUE: Imaging protocol: Real-time ultrasound of the scrotum and contents with color Doppler and image documentation. COMPARISON: CT abdomen pelvis w con* [id number] 01/12/2023 1:20 AM FINDINGS: Right testicle: Right testicle appears edematous. Left testicle: Left testicle appears edematous. Epididymides: Normal. Scrotum/soft tissues: Normal. US/US scrotum [id number] IMPRESSION: Testicles appear edematous bilaterally, nonspecific, normal color blood flow seen in the testicles bilaterally.
--- NOTE | 2023-03-06 20:11 | ED_ITS ---
HPI - Abdominal Pain General: Chief Complaint: Abdominal Pain Stated Complaint: Swollen\ABD Pain Time Seen by Provider: 03/06/23 19:40 History of Present Illness: Patient presents to the ER with complaints of abdominal pain edema to bilateral lower extremities constipation and testicular swelling. Patient had back surgery a while back for an infection he was placed on Vanco through a PICC line and has been in rehab ever since. Patient did take an extra couple doses of lactulose today and had a bowel movement. Patient is here wondering why he is abdomen is painful distended and he is not having any bowel sounds. As well as why his lower extremities are swelling. Patient is currently on Lasix. Patient says he takes all his medicine as directed and does not miss any doses. Review of Systems General: Reports: 10 or more systems reviewed and unremarkable except in HPI and below PFSH ED PFSH: Medical History Abdominal aortic aneurysm Diabetes mellitus Hyperlipidemia Hypertension Surgical History H/O abdominal aortic aneurysm repair Social History Smoking and tobacco status: former smoker Alcohol intake: former Physical Exam Const: COMMON NORMALS: no acute distress, average body habitus, patient oriented x3, no limitations, healthy appearing, alert and well nourished HENMT: COMMON NORMALS: normocephalic, atraumatic, hearing grossly normal bilaterally, external ears normal, Normal external nose present and moist oral mucous membranes HEAD & SCALP: normocephalic and atraumatic NOSE: Normal external nose present EXTERNAL EAR: Yes external ears normal Eye: COMMON NORMALS: Equal, round and reactive pupils present, EOMs intact bilaterally, conjunctivae normal and no scleral icterus CONJUNCTIVA: Yes conjunctivae normal PUPIL: Yes Equal, round and reactive pupils present Neck/C-Spine: COMMON NORMALS: full ROM, no lymphadenopathy, supple, no meningeal signs, no JVD and Thyroid normal THYROID: Thyroid normal Lymph: LYMPHATIC: no lymphadenopathy noted Chest: COMMONS NORMALS: normal inspection of the chest and normal palpation of entire chest wall Resp: COMMON NORMALS: normal respiratory effort, No retractions, No use of accessory muscles and clear to auscultation bilaterally AUSCULTATION: clear to auscultation bilaterally Cardio: COMMON NORMALS: no JVD, regular rate, regular rhythm, S1 normal heart sound present, S2 normal heart sound present, No gallops present (Cardio), No murmurs present (Cardio) and No rub (Cardio) RATE: regular rate RHYTHM: regular rhythm HEART SOUNDS: S1 normal heart sound present and S2 normal heart sound present GI: COMMON NORMALS: Soft to palpation, No hepatosplenomegaly present and no masses; negative for Normal to inspection, nondistended, normoactive bowel sounds present (Hypoactive bowel sounds in all 4 quadrants) and negative for non-tender (Mildly tender to palpation predominantly mid epigastric periumbilical.) PALPATION: Yes Soft to palpation and Yes No hepatosplenomegaly present : COMMON NORMALS: Yes no CVA tenderness BLADDER/KIDNEY EXAM: Yes no CVA tenderness Back/Pelvis: COMMON NORMALS: no CVA tenderness Extremity: NARRATIVE EXTREMITY EXAM: 2+ pitting edema least up to the knees bilateral lower extremities. Neuro: COMMON NORMALS: patient oriented x3 SENSORIUM/ORIENTATION: Yes alert MENINGEAL SIGNS: Yes no meningeal signs Course Vital Signs: Vital signs: Vital Signs Temperature 98.0 F 03/06/23 18:53 Pulse Rate 80 03/07/23 00:00 Respiratory Rate 20 H 03/06/23 20:29 Blood Pressure 95/57 03/07/23 00:00 Pulse Oximetry 97 03/07/23 00:00 Oxygen Delivery Me thod Room Air 03/07/23 00:00 MDM - Abdominal Pain Medical Decision Making Patient presents to the ER with bilateral lower extremity swelling abdominal pain testicular swelling. Patient had testicular ultrasound which showed bilateral edematous testicles otherwise normal. Chest x-ray showed mild pulmonary edema with superimposed atelectasis versus pneumonia in the right middle lobe left lingula right and left lower lobes. Abdomen pelvis CT was negative in the abdomen pelvis part but did show multifocal little lytic metastatic disease throughout the osseous structures which patient has known bone cancer and also showed bilateral lower lobe interstitial infiltrates. Patient was given the option to go inpatient for IV antibiotics and IV diuresis but he chose to go home. Patient will be given 1 dose of Levaquin IV here and 6 0 mg of IV Lasix. Patient will be sent home on Levaquin and have his Lasix dose doubled for the next 5 days. Patient should follow-up with his PCP in approximately 7 days or sooner as needed. Differential Diagnosis Likely abdominal pain and constipation; Unlikely acute appendicitis, calculus of kidney, diverticulitis, endometriosis, gastroenteritis, pancreatitis or small bowel obstruction Medical Records I reviewed the patient's medical records. Lab Data I reviewed the patient's lab results. 03/06/23 19:55 03/06/23 19:55 Labs/Radiology: Radiology Impressions Abdomen X-Ray 03/06/23 20:10 IMPRESSION: 1. No evidence for bowel obstruction or perforation. 2. Incidental/nonacute findings are listed in the report. Chest X-Ray 03/06/23 20:10 IMPRESSION: 1. Mild interstitial pulmonary edema with superimposed atelectasis versus pneumonia in the right middle lobe, left lingula, and right and left lower lobes. Recommend followup chest imaging to insure resolution of these findings. 2. Moderate right and small left pleural effusions. 3. Right upper extremity PICC with the tip at the superior vena cava. 4. Incidental/nonacute findings are listed in the report. Scrotum Ultrasound 03/06/23 20:11 IMPRESSION: Testicles appear edematous bilaterally, nonspecific, normal color blood flow seen in the testicles bilaterally. Abdomen/Pelvis CT 03/06/23 23:25 IMPRESSION: 1. Negative for focal acute inflammatory process in the abdomen or pelvis. 2. Multifocal lytic metastatic disease throughout the osseous structures, new compared to prior CT. 3. Cholecystectomy. 4. Spleen enlarged to 14.7 cm. 5. Anasarca. 6. Aortobifemoral graft with an excluded aneurysm sac. 7. Diverticulosis without diverticulitis. 8. Constipation. 9. Cholecystectomy. 10. Anasarca. 11. Small amount of free fluid in the abdomen and pelvis, nonspecific. 12. Coates catheter in the urinary bladder with air presumed iatrogenic. 13. Coronary artery atherosclerotic calcifications. 14. Cardiomegaly. 15. Large bilateral pleural effusions. 16. Bibasilar airspace infiltrates. 17. Perinephric edema bilaterally, likely reflecting renal insufficiency, please correlate for pyelonephritis. Laboratory Results WBC 6.70 10^3/uL (3.29-11.43) 03/06/23 19:55 RBC 2.54 10^6/uL (3.85-5.65) L 03/06/23 19:55 Hgb 7.80 g/dL (11.27-16.99) L 03/06/23 19:55 Hct 28.3 % (37-53) L 03/06/23 19:55 MCV 111.4 fl (82-101) H 03/06/23 19:55 MCH 30.7 pg (27-33) 03/06/23 19:55 MCHC 27.6 g/dL (30-55) L 03/06/23 19:55 RDW 21.2 % (12.1-15.1) H 03/06/23 19:55 Plt Count 42 10^3/cmm (157-399) L 03/06/23 19:55 MPV 12.7 fL (7.4-10.4) H 03/06/23 19:55 Neut % (Auto) 83.6 % 03/06/23 19:55 Lymph % (Auto) 6.9 % 03/06/23 19:55 [place] % (Auto) 8.5 % 03/06/23 19:55 Eos % (Auto) 0.3 % 03/06/23 19:55 Baso % (Auto) 0.1 % 03/06/23 19:55 Neut # (Auto) 5.60 10^3/uL (1.8-7.7) 03/06/23 19:55 Lymph # (Auto) 0.5 10^3/uL (0.8-4.8) L 03/06/23 19:55 [place] # (Auto) 0.6 10^3/uL (0.2-0.9) 03/06/23 19:55 Eos # (Auto) 0.0 10^3/uL (0.0-0.8) 03/06/23 19:55 Baso # (Auto) 0.0 10^3/uL (0.0-0.1) 03/06/23 19:55 Nucleated RBC % (auto) 0 % 03/06/23 19:55 Nucleated RBCs # 0.0 /100WBC 03/06/23 19:55 Sodium 141 mmol/L (136-145) 03/06/23 19:55 Potassium 5.2 mmol/L (3.5-5.1) H 03/06/23 19:55 Chloride 103 mmol/L (98-107) 03/06/23 19:55 Carbon Dioxide 28 mmol/L (22-29) 03/06/23 19:55 Anion Gap 15.2 (5-19) 03/06/23 19:55 BUN 29 mg/dL (8-23) H 03/06/23 19:55 Creatinine 1.3 mg/dL (0.7-1.2) H 03/06/23 19:55 GFR Calculation 54.6 mL/min (90-130) L 03/06/23 19:55 Glucose 97 mg/dL (65-115) 03/06/23 19:55 Calculated Osmolality 298 mOsm/kg (285-295) H 03/06/23 19:55 Calcium 8.3 mg/dL (8.5-10.5) L 03/06/23 19:55 Total Bilirubin 0.6 mg/dL (0.15-1.2) 03/06/23 19:55 AST 51 U/L (0-40) H 03/06/23 19:55 ALT 31 U/L (0-41) 03/06/23 19:55 Alkaline Phosphatase 270 U/L (40-130) H 03/06/23 19:55 NT-Pro-B Natriuret Pep 12033 pg/mL (0-125) H 03/06/23 19:55 Total Protein 5.6 g/dL (6.6-8.7) L 03/06/23 19:55 Albumin 2.3 g/dL (3.5-5.2) L 03/06/23 19:55 Globulin 3.3 g/dL (1.3-4.6) 03/06/23 19:55 Lipase 11 U/L (13-60) L 03/06/23 19:55 Urine Color Yellow (Yellow) 03/06/23 22:49 Urine Appearance Hazy (CLEAR) A 03/06/23 22:49 Urine pH 5 (5-7) 03/06/23 22:49 Ur Specific Mobile 1.015 (1.005-1.030) 03/06/23 22:49 Urine Protein Neg (Negative) 03/06/23 22:49 Urine Glucose (UA) Norm (Normal) 03/06/23 22:49 Urine Ketones Negative (Negative) 03/06/23 22:49 Urine Blood 3+ (Negative) H 03/06/23 22:49 Urine Nitrate Negative (Negative) 03/06/23 22:49 Urine Bilirubin Neg (Negative) 03/06/23 22:49 Urine Urobilinogen Neg mg/dL (Negative) 03/06/23 22:49 Ur Leukocyte Esterase 2+ (Negative) H 03/06/23 22:49 Urine RBC 15-25 /hpf (0-2) H 03/06/23 22:49 Urine WBC 10-15 /hpf (0-5) H 03/06/23 22:49 Ur Squamous Epith Cells 0-4 /hpf (0-5) H 03/06/23 22:49 Amorphous Sediment Not Reportable 03/06/23 22:49 Urine Bacteria 1+ /hpf (NONE) H 03/06/23 22:49 Urine Mucus 2+ /hpf 03/06/23 22:49 Urine Yeast 3+ /hpf H 03/06/23 22:49 Discharge Plan Discharge Patient Disposition: Home Clinical Impression: Pneumonia of both lower lobes Qualifiers: Pneumonia type: due to unspecified organism Qualified Code(s): J18.9 - Pneumonia, unspecified organism Edema Qualifiers: Edema type: unspecified Qualified Code(s): R60.9 - Edema, unspecified Condition: Stable Prescriptions: New levofloxacin 500 mg tablet 500 mg PO DAILY 7 Days Qty: 7 0RF No Action multivitamin Tablet 1 tab PO DAILY atorvastatin 40 mg tablet 40 mg PO DAILY polyethylene glycol 3350 [Miralax] 17 gram Powder In Packet 17 g PO DAILY PRN (Reason: Constipation) lisinopril 20 mg tablet 20 mg PO BID pioglitazone 45 mg tablet 45 mg PO DAILY amlodipine 5 mg tablet 5 mg PO DAILY tramadol 50 mg tablet 50 - 100 mg PO Q4H PRN (Reason: Pain) glimepiride 2 mg tablet 2 mg PO DAILY docusate sodium [Colace] 100 mg Capsule 100 mg PO DAILY oxycodone 5 mg tablet 5 mg PO Q6H PRN (Reason: Pain) metoprolol tartrate 25 mg tablet 12.5 mg PO BID fenofibrate nanocrystallized 145 mg tablet 145 mg PO DAILY Jentadueto 2.5-1,000 mg tablet 1 tab PO BID diclofenac sodium 75 mg tablet,delayed release (DR/EC) 75 mg PO Q12H PRN (Reason: pain) Qty: 20 0RF tizanidine 4 mg capsule 4 mg PO Q6H PRN (Reason: muscle spasticity) Qty: 20 0RF Rx Instructions: do not exceed 3 doses per 24 hrs pregabalin [Lyrica] 75 mg capsule 75 mg PO BID Qty: 60 0RF vancomycin in 0.9 % sodium chl 1.25 gram/250 mL Solution 1.25 g IV Q24H Discharge Orders: Discharge ED (Routine); Ordered 03/07/23 Ordered By: Ritchie Smith Referrals: Richardson,Annika, PROBATION AND PATROL AGENT [Primary Care Provider] - 1 week Patient Instructions: Pneumonia (ED), Edema (ED) Activity Restrictions/Additional Instructions: Please take all your antibiotics as prescribed, please double up on your Lasix and take 2 pills daily for the next 5 days. Please follow-up with your family practice doctor within the next 7 days or sooner as needed for further evaluation and treatment. Coding Level of Care Code ED Histology Supervisor for Lencho Redmond
[2023-03-06 20:13] LABS: Basophils % 0.1 %; Eosinophils % 0.3 %; Hematocrit 28.3 % (37-53); Lymphocytes # 0.5 10^3/uL (0.8-4.8); Lymphocytes % 6.9 %; Mean Corpuscular HGB Conc 27.6 g/dL (30-55); Mean Corpuscular Hemoglobin 30.7 pg (27-33); Mean Corpuscular Volume 111.4 fl (82-101); Mean Platelet Volume 12.7 fL (7.4-10.4); Monocytes # 0.6 10^3/uL (0.2-0.9); Monocytes % 8.5 %; Neutrophils % 83.6 %; Nucleated Red Blood Cells % 0 %; Platelet Count 42 10^3/cmm (157-399); Red Blood Count 2.54 10^6/uL (3.85-5.65); Red Cell Distribution Width 21.2 % (12.1-15.1)
[2023-03-06 20:29] VITALS: BP 91/56; PULSE 82; RESP 20; O2SAT 99
[2023-03-06 20:51] LABS: Alanine Aminotransferase 31 U/L (0-41); Albumin Level 2.3 g/dL (3.5-5.2); Alkaline Phosphatase 270 U/L (40-130); Aspartate Amino Transferase 51 U/L (0-40); Blood Urea Nitrogen 29 mg/dL (8-23); Calcium 8.3 mg/dL (8.5-10.5); Carbon Dioxide 28 mmol/L (22-29); Chloride 103 mmol/L (98-107); Globulin 3.3 g/dL (1.3-4.6); Glomerular Filtration Rate 54.6 mL/min (90-130); Glucose 97 mg/dL (65-115); Lipase 11 U/L (13-60); NT Pro B Type Natriuretic Pept 12356 pg/mL (0-125); Osmolality Calculated 298 mOsm/kg (285-295); Sodium 141 mmol/L (136-145); Total Bilirubin 0.6 mg/dL (0.15-1.2); Total Protein 5.6 g/dL (6.6-8.7)
[2023-03-06 21:02] LABS: Creatinine Clr Calc Pharmacy 58.2128
[2023-03-06 21:04] LABS: Anion Gap 15.2 (5-19); Potassium 5.2 mmol/L (3.5-5.1)
[2023-03-06] MEDS: FUROsemide 10 mg/mL SDV 10mL 60 MG IVP (21:40)
[2023-03-06 22:00] VITALS: BP 108/67; PULSE 80; O2SAT 97
--- NOTE | 2023-03-06 22:11 | PC.NURSE ---
Patient requesting po cat 10/325 that he takes at home. SPoke with provider and given a verbal order for 1 tab ACT 10/325. rbvo and placed.
[2023-03-06] MEDS: HYDROcodone-acetaminophen 10-325 mg Tablet 1 TAB PO (22:55)
[2023-03-06 23:14] LABS: Add Urine Microscopic? YES; Bilirubin Urine Neg (Negative); Blood Urine 3+ (Negative); Glucose Urine UA Norm (Normal); Ketones Urine Negative (Negative); Leukocyte Esterase Urine 2+ (Negative); Nitrate Urine Negative (Negative); Protein Urine Neg (Negative); Specific Gravity, Urine 1.015 (1.005-1.030); Urine Appearance Hazy (CLEAR); Urine Color Yellow (Yellow); Urobilinogen Urine Neg (Negative); pH Urine 5 (5-7)
[2023-03-06 23:15] LABS: Add Urine Culture? Yes; Bacteria Urine 1+ /hpf; Mucus Urine 2+ /hpf; RBC Urine 15-25 /hpf (0-2); Squamous Epithelial Cell Urine 0-4 /hpf (0-5)
--- NOTE | 2023-03-06 23:25 | CTR_ITS ---
PROCEDURE INFORMATION: Exam: CT Abdomen And Pelvis Without Contrast Exam date and time: 03/06/2023 11:49 PM Age: 68 years old Clinical indication: Abdominal pain; Generalized; Prior surgery; Surgery date: 6+ months; Surgery type: Gb/aaa; Additional info: Hematuria , testicular pain, abd pain constipation TECHNIQUE: Imaging protocol: Computed tomography of the abdomen and pelvis without contrast. Radiation optimization: All CT scans at this facility use at least one of these dose optimization techniques: automated exposure control; mA and/or kV adjustment per patient size (includes targeted exams where dose is matched to clinical indication); or iterative reconstruction. REPORTING DATA: Count of CT and Cardiac NM exams in prior 12 months: This patient has received [address] and 0 known cardiac nuclear medicine studies in the 12 months prior to the current study. COMPARISON: CT abdomen pelvis w con* [id number] 01/12/2023 1:20 AM RADIATION DOSE METRICS: Total DLP (mGy-cm): 1005.03 FINDINGS: Lungs: Bibasilar airspace infiltrates. Pleural spaces: Large bilateral pleural effusions. Heart: Cardiomegaly. Coronary arteries: Coronary artery atherosclerotic calcifications. Liver: Normal. No mass. Gallbladder and bile ducts: Cholecystectomy. Cholecystectomy. Pancreas: Normal. No ductal dilation. Spleen: Spleen enlarged to 14.7 cm. Adrenal glands: Normal. No mass. Kidneys and ureters: Perinephric edema bilaterally, likely reflecting renal insufficiency, please correlate for pyelonephritis. Stomach and bowel: Diverticulosis without diverticulitis. Constipation. Appendix: No evidence of appendicitis. Intraperitoneal space: Small amount of free fluid in the abdomen and pelvis. Vasculature: Aortobifemoral graft with an excluded aneurysm sac. Lymph nodes: Unremarkable. No enlarged lymph nodes. Urinary bladder: Coates catheter in the urinary bladder with air presumed iatrogenic. Reproductive: Unremarkable as visualized. Bones/joints: Multifocal lytic metastatic disease throughout the osseous structures, new compared to prior CT. Soft tissues: Anasarca. Anasarca. CT/CT abdomen pelvis wo con [id number] IMPRESSION: 1. Negative for focal acute inflammatory process in the abdomen or pelvis. 2. Multifocal lytic metastatic disease throughout the osseous structures, new compared to prior CT. 3. Cholecystectomy. 4. Spleen enlarged to 14.7 cm. 5. Anasarca. 6. Aortobifemoral graft with an excluded aneurysm sac. 7. Diverticulosis without diverticulitis. 8. Constipation. 9. Cholecystectomy. 10. Anasarca. 11. Small amount of free fluid in the abdomen and pelvis, nonspecific. 12. Coates catheter in the urinary bladder with air presumed iatrogenic. 13. Coronary artery atherosclerotic calcifications. 14. Cardiomegaly. 15. Large bilateral pleural effusions. 16. Bibasilar airspace infiltrates. 17. Perinephric edema bilaterally, likely reflecting renal insufficiency, please correlate for pyelonephritis.
[2023-03-06 23:30] VITALS: BP 105/67; PULSE 81; O2SAT 96
[2023-03-07] VITALS: BP 95/57; PULSE 80; O2SAT 97
--- NOTE | 2023-03-07 01:04 | PC.NURSE ---
New stat lock for patients toussaint applied to rt leg d/t broken prev one.
[2023-03-07] MEDS: levofloxacin-dextrose 5 % 500 MG/100 ML PREMIX 100 MG IV (01:10)
[2023-03-07 02:00] VITALS: PULSE 73; O2SAT 90
[2023-03-07 02:16] VITALS: PULSE 68; RESP 20; O2SAT 90
[2023-03-21 10:36] LABS: Miscellaneous Test SEE COMMENTS
== END 2023-03-07 02:18 | disposition home or self-care (01) ==
PROVIDERS: Emergency Provider Emergency Medicine; PCP Nurse Practitioner Family
DX: J18.9 Pneumonia, unspecified organism (principal); R60.9 Edema, unspecified; Z79.84 Long term (current) use of oral hypoglycemic drugs; E11.9 Type 2 diabetes mellitus without complications; E78.5 Hyperlipidemia, unspecified; I10 Essential (primary) hypertension; Z87.891 Personal history of nicotine dependence
CPT/HCPCS: 71045; 74018; 74176; 76870; 80053; 81001; 83690; 83880; 85025; 87086; 87106; 96361; 96374; 99285; 99291; J1940; J1956

== ENCOUNTER 2023-03-08 10:52 | Outpatient (RCR) | payer OTHER, SELFPAY ==
[2023-03-01 11:35] VITALS: BP 131/71; PULSE 92; RESP 18; TEMP 36.9; O2SAT 94
--- NOTE | 2023-03-01 11:35 | PC.NURSE ---
Pt to GI infusions for PICC dressing change and lab draw. Unable to draw blood from PICC. Labs drawn peripherally. PICC flushes without difficulty. No redness or swelling noted. Lab results faxed to [facility] as requested.
[2023-03-01 11:55] LABS: Basophils % 0.4 %; Hematocrit 31.3 % (37-53); Lymphocytes # 0.4 10^3/uL (0.8-4.8); Lymphocytes % 5.3 %; Mean Corpuscular HGB Conc 28.4 g/dL (30-55); Mean Corpuscular Hemoglobin 31.3 pg (27-33); Mean Corpuscular Volume 110.2 fl (82-101); Mean Platelet Volume 12.1 fL (7.4-10.4); Monocytes # 0.5 10^3/uL (0.2-0.9); Monocytes % 7.3 %; Neutrophils # 6.23 10^3/uL (1.8-7.7); Neutrophils % 86.3 %; Nucleated Red Blood Cells % 0.6 %; Platelet Count 50 10^3/cmm (157-399); Red Blood Count 2.84 10^6/uL (3.85-5.65); Red Cell Distribution Width 22.2 % (12.1-15.1); White Blood Count 7.22 10^3/uL (3.29-11.43)
[2023-03-01 12:05] LABS: Alanine Aminotransferase 18 U/L (0-41); Albumin Level 2.7 g/dL (3.5-5.2); Alkaline Phosphatase 203 U/L (40-130); Anion Gap 15.1 (5-19); Aspartate Amino Transferase 21 U/L (0-40); Blood Urea Nitrogen 27 mg/dL (8-23); Calcium 8.6 mg/dL (8.5-10.5); Carbon Dioxide 30 mmol/L (22-29); Chloride 103 mmol/L (98-107); Globulin 3.6 g/dL (1.3-4.6); Glomerular Filtration Rate 73.9 mL/min (90-130); Glucose 267 mg/dL (65-115); Osmolality Calculated 312 mOsm/kg (285-295); Potassium 4.1 mmol/L (3.5-5.1); Sodium 144 mmol/L (136-145); Total Bilirubin 0.6 mg/dL (0.15-1.2); Total Protein 6.3 g/dL (6.6-8.7)
[2023-03-01 12:11] LABS: Vancomycin Trough 15.4 ug/mL (10-15)
[2023-03-03 10:05] VITALS: BP 123/72; PULSE 93; RESP 18; TEMP 36; O2SAT 97
[2023-03-03 10:40] LABS: Basophils % 0.4 %; Eosinophils % 0.1 %; Hematocrit 32.7 % (37-53); Lymphocytes # 0.4 10^3/uL (0.8-4.8); Lymphocytes % 5.7 %; Mean Corpuscular HGB Conc 28.4 g/dL (30-55); Mean Corpuscular Hemoglobin 32.1 pg (27-33); Mean Corpuscular Volume 112.8 fl (82-101); Mean Platelet Volume 12.7 fL (7.4-10.4); Monocytes # 0.7 10^3/uL (0.2-0.9); Monocytes % 8.7 %; Neutrophils # 6.33 10^3/uL (1.8-7.7); Neutrophils % 84.4 %; Nucleated Red Blood Cells % 0 %; Platelet Count 45 10^3/cmm (157-399); Red Cell Distribution Width 22.3 % (12.1-15.1)
[2023-03-03 10:45] LABS: Alanine Aminotransferase 17 U/L (0-41); Albumin Level 2.8 g/dL (3.5-5.2); Alkaline Phosphatase 209 U/L (40-130); Anion Gap 13.4 (5-19); Aspartate Amino Transferase 20 U/L (0-40); Blood Urea Nitrogen 24 mg/dL (8-23); Calcium 8.5 mg/dL (8.5-10.5); Carbon Dioxide 31 mmol/L (22-29); Chloride 105 mmol/L (98-107); Creatinine Clr Calc Pharmacy 79.1851; Globulin 3.4 g/dL (1.3-4.6); Glomerular Filtration Rate 83.4 mL/min (90-130); Glucose 182 mg/dL (65-115); Osmolality Calculated 309 mOsm/kg (285-295); Potassium 4.4 mmol/L (3.5-5.1); Sodium 145 mmol/L (136-145); Total Bilirubin 0.7 mg/dL (0.15-1.2); Total Protein 6.2 g/dL (6.6-8.7)
[2023-03-03 10:54] LABS: Vancomycin Trough 12.2 ug/mL (10-15)
[2023-03-08 10:58] VITALS: BP 105/67; PULSE 82; RESP 18; TEMP 35.8; O2SAT 96
[2023-03-08 11:23] LABS: Basophils % 0.1 %; Hematocrit 28.6 % (37-53); Lymphocytes # 0.3 10^3/uL (0.8-4.8); Lymphocytes % 3.7 %; Mean Corpuscular HGB Conc 28.7 g/dL (30-55); Mean Corpuscular Hemoglobin 31.3 pg (27-33); Mean Corpuscular Volume 109.2 fl (82-101); Mean Platelet Volume 12.3 fL (7.4-10.4); Monocytes # 0.5 10^3/uL (0.2-0.9); Monocytes % 6.4 %; Neutrophils # 6.46 10^3/uL (1.8-7.7); Neutrophils % 89.2 %; Nucleated Red Blood Cells % 0.3 %; Platelet Count 40 10^3/cmm (157-399); Red Blood Count 2.62 10^6/uL (3.85-5.65); Red Cell Distribution Width 20.8 % (12.1-15.1); White Blood Count 7.24 10^3/uL (3.29-11.43)
[2023-03-08 11:39] LABS: Vancomycin Trough 10.4 ug/mL (10-15)
[2023-03-08 11:47] LABS: Alanine Aminotransferase 26 U/L (0-41); Albumin Level 2.3 g/dL (3.5-5.2); Alkaline Phosphatase 256 U/L (40-130); Anion Gap 13.5 (5-19); Aspartate Amino Transferase 26 U/L (0-40); Blood Urea Nitrogen 28 mg/dL (8-23); Calcium 8.4 mg/dL (8.5-10.5); Carbon Dioxide 29 mmol/L (22-29); Chloride 105 mmol/L (98-107); Globulin 3.2 g/dL (1.3-4.6); Glomerular Filtration Rate 54.6 mL/min (90-130); Glucose 69 mg/dL (65-115); Osmolality Calculated 300 mOsm/kg (285-295); Potassium 4.5 mmol/L (3.5-5.1); Sodium 143 mmol/L (136-145); Total Bilirubin 0.7 mg/dL (0.15-1.2); Total Protein 5.5 g/dL (6.6-8.7)
== END 2023-03-15 23:59 | disposition home or self-care (01) ==
LOC: GILAB 10:52
PROVIDERS: PCP Nurse Practitioner Family; Visit Provider Internal Medicine
DX: G06.1 Intraspinal abscess and granuloma (principal)
CPT/HCPCS: 36415; 36592; 80053; 80202; 85025

== ENCOUNTER 2023-03-09 23:55 | Inpatient (IN) | payer OTHER, MEDICARE, SELFPAY ==
[2023-03-10] VITALS (31 sets, daily range): BP systolic 101–151; BP diastolic 64–90; PULSE 0–110; RESP 14–32; TEMP 36.3–36.7; O2SAT 81–100; BMI 28.0
--- NOTE | 2023-03-10 00:04 | CTR_ITS ---
PROCEDURE INFORMATION: Exam: CT Head Without Contrast Exam date and time: 03/09/2023 11:59 PM Age: 68 years old Clinical indication: Altered mental status/memory loss; Additional info: Strokelike symptoms TECHNIQUE: Imaging protocol: Computed tomography of the head without contrast. Radiation optimization: All CT scans at this facility use at least one of these dose optimization techniques: automated exposure control; mA and/or kV adjustment per patient size (includes targeted exams where dose is matched to clinical indication); or iterative reconstruction. REPORTING DATA: Count of CT and Cardiac NM exams in prior 12 months: This patient has received 2 known CTs and 0 known cardiac nuclear medicine studies in the 12 months prior to the current study. COMPARISON: No relevant prior studies available. RADIATION DOSE METRICS: Total DLP (mGy-cm): 1130.98 FINDINGS: Brain: No hemorrhage. Diffuse periventricular white matter disease. No mass effect. There are no intra or extra-axial masses or collections. The basilar cisterns are patent. Cerebral ventricles: Ventricles are prominent secondary to age appropriate cerebral atrophy. Paranasal sinuses: Visualized sinuses are unremarkable. No fluid levels. Mastoid air cells: Visualized mastoid air cells are well aerated. Bones/joints: Unremarkable. No acute fracture. Soft tissues: Unremarkable. CT/CT head wo con* [id number] IMPRESSION: No acute intracranial abnormality.
--- NOTE | 2023-03-10 00:07 | ECG_ITS ---
[facility] Test Date: 2023-03-10 Pat Name: Niraj Ackerman Department: Room: Gender: Male [employer] Professor: : 1955 Requested By: Ritchie Smith Order Number: [id number] William MD: Suin Gallardo M.D. Measurements Intervals [place] Rate: 97 P: 45 VT: 190 QRS: 105 QRSD: 169 T: 18 QT: 369 QTc: 469 Interpretive Statements SINUS RHYTHM RIGHT AXIS DEVIATION [QRS AXIS > 100] RIGHT BUNDLE BRANCH BLOCK [120+ ms QRS DURATION, UPRIGHT V1, 40+ ms S IN I/aVL/V4/V5/V6] No previous ECG available for comparison Electronically Signed On 03-10-2023 19:01:03 CDT by Suni Gallardo M.D. [id number]
--- NOTE | 2023-03-10 00:07 | XRR_ITS ---
PROCEDURE INFORMATION: Exam: XR Chest Exam date and time: 03/10/2023 12:20 AM Age: 68 years old Clinical indication: Other: CVA symptoms; Prior surgery; Surgery date: 1-6 months; Surgery type: Recent back surgery with infection, lung and bone cancer TECHNIQUE: Imaging protocol: Radiologic exam of the chest. Views: 1 view. COMPARISON: CR (CHEST, ) 03/06/2023 8:22 PM FINDINGS: Lungs: There are patchy opacification in the bases bilaterally, this may represent early infiltrates versus atelectasis. Pleural spaces: There are bilateral moderate pleural effusions. Heart/Mediastinum: Unremarkable. No cardiomegaly. Bones/joints: Patient is status post median sternotomy and anterior cervical thoracic fusion. Other findings: There has been interval progression of disease when compared with the previous study. XR/XR chest 1V portable [id number] IMPRESSION: 1. Moderate bilateral pleural effusions. 2. Possible bibasal infiltrates versus atelectasis.
--- NOTE | 2023-03-10 00:09 | ED_ITS ---
HPI - Neuro Symptoms/Deficit General: Chief Complaint: Neuro Symptoms/Deficit Stated Complaint: LOW BLOOD SUGAR Time Seen by Provider: 03/10/23 00:13 History of Present Illness: EMS was called for unresponsive person. When he got there his blood sugar was approximately 29 Patient was given approximately 500 mL of D10 raise his blood sugar up upwards of about 200. When patient started coming to an alert they noticed he was slurring his words and had some left-sided weakness. Patient normally does not have any of these deficits. There is no history of stroke in the past. Patient is a diabetic and is on glimepiride, Jentadueto, pioglitazone, patient is also on Lyrica and tramadol. Upon further talking with Dr. Francisco who talk to family patient's left-sided weakness in upper and lower extremities is not new and is why he had surgery on his neck in [place] approximately 6 weeks ago and may have ended up with osteomyelitis because he is has a PICC line and is on vancomycin for that currently. Patient is a diabetic but he did eat a high glycemic meal for supper tonight. Patient also gets confused and possible sundowning syndrome at night. These are not new symptoms per the family. Review of Systems General: Reports: ROS unobtainable due to medical condition PFSH ED PFSH: Medical History Abdominal aortic aneurysm Diabetes mellitus Hyperlipidemia Hypertension Surgical History H/O abdominal aortic aneurysm repair Social History Smoking and tobacco status: former smoker Alcohol intake: former Physical Exam Const: COMMON NORMALS: no acute distress, average body habitus, healthy appearing, alert and well nourished ORIENTATION/CONSCIOUSNESS: Yes oriented to person HENMT: COMMON NORMALS: normocephalic, atraumatic, hearing grossly normal bilaterally, external ears normal, Normal external nose present and moist oral mucous membranes HEAD & SCALP: normocephalic and atraumatic NOSE: Normal external nose present EXTERNAL EAR: Yes external ears normal Eye: COMMON NORMALS: Equal, round and reactive pupils present, EOMs intact bilaterally, conjunctivae normal and no scleral icterus CONJUNCTIVA: Yes conjunctivae normal PUPIL: Yes Equal, round and reactive pupils present Neck/C-Spine: COMMON NORMALS: no JVD Chest: COMMONS NORMALS: normal inspection of the chest and normal palpation of entire chest wall Resp: COMMON NORMALS: normal respiratory effort, No retractions, No use of accessory muscles and clear to auscultation bilaterally AUSCULTATION: clear to auscultation bilaterally Cardio: COMMON NORMALS: no JVD, regular rate, regular rhythm, S1 normal heart sound present, S2 normal heart sound present, No gallops present (Cardio), No clicks present (Cardio), No murmurs present (Cardio) and No rub (Cardio) RATE: regular rate RHYTHM: regular rhythm HEART SOUNDS: S1 normal heart sound present and S2 normal heart sound present GI: COMMON NORMALS: Normal to inspection, nondistended, normoactive bowel sounds present, Soft to palpation, non-tender, No hepatosplenomegaly present and no masses PALPATION: Yes Soft to palpation and Yes No hepatosplenomegaly present Neuro: FEDERICA COMA SCALE: document GCS findings Federica coma scale eye opening: Spontaneous Federica coma scale verbal response: Orientated Federica coma scale motor response: Obey commands Federica coma scale total score: 15 SENSORIUM/ORIENTATION: Yes alert and Yes oriented to person SPEECH: abnormal speech GAIT: Yes Unable to assess gait MOTOR EXAM: No Normal motor muscle tone present throughout (Possible weakness in the left lower extremity greater than right) PUPIL EXAM: Normal pupillary reactivity/response: right, left and bilateral Course Vital Signs: Vital signs: Vital Signs Temperature 98.2 F 03/13/23 17:00 Pulse Rate 76 03/13/23 18:00 Respiratory Rate 16 03/13/23 18:00 Blood Pressure 107/74 03/13/23 18:00 Pulse Oximetry 97 03/13/23 18:00 Oxygen Delivery Me thod Room Air 03/13/23 18:00 Oxygen Flow Rate 3 03/11/23 13:39 Fraction of Inspir ed Oxygen 24 03/12/23 18:00 MDM - Neuro Symptoms/Deficit Medical Decision Making Patient taken directly to CT for noncontrast CT of the head was performed which appeared negative for bleed. Physical exam was performed Dr. Francisco showed up and evaluated patient in the room. Upon further talking to the patient's family patient normally has some left-sided weakness and he appears to be sundowning at nighttime fairly consistently prior to this. It is felt that he is not a tPA candidate as this patient has had recent surgery and he does not have a new deficit. Upon rechecking patient's blood sugar was found to be 29 again patient was given an amp of D50 and started on D10 drip Dr. Salazar was consulted and agreed to place the patient inpatient for further evaluation and treatment secondary to his persistent quick acting hypoglycemia. Differential Diagnosis Unlikely carpal tunnel syndrome, convulsions, delirium, subarachnoid hemorrhage, peripheral neuropathy, multiple sclerosis or transient cerebral ischemia Medical Records I reviewed the patient's medical records. Lab Data I reviewed the patient's lab results. 03/13/23 06:04 03/13/23 06:04 Radiology Impressions Venous Duplex 03/11/23 09:29 IMPRESSION: No evidence of deep vein thrombosis. Laboratory Results WBC 7.66 10^3/uL (3.29-11.43) 03/10/23 00:46 RBC 2.67 10^6/uL (3.85-5.65) L 03/10/23 00:46 Hgb 8.40 g/dL (11.27-16.99) L 03/10/23 00:46 Hct 30.0 % (37-53) L 03/10/23 00:46 MCV 112.4 fl (82-101) H 03/10/23 00:46 MCH 31.5 pg (27-33) 03/10/23 00:46 MCHC 28.0 g/dL (30-55) L 03/10/23 00:46 RDW 21.4 % (12.1-15.1) H 03/10/23 00:46 Plt Count 46 10^3/cmm (157-399) L 03/10/23 00:46 MPV 12.4 fL (7.4-10.4) H 03/10/23 00:46 Neut % (Auto) 86.9 % 03/10/23 00:46 Lymph % (Auto) 3.3 % 03/10/23 00:46 [place] % (Auto) 8.7 % 03/10/23 00:46 Eos % (Auto) 0.3 % 03/10/23 00:46 Baso % (Auto) 0.1 % 03/10/23 00:46 Neut # (Auto) 6.66 10^3/uL (1.8-7.7) 03/10/23 00:46 Lymph # (Auto) 0.3 10^3/uL (0.8-4.8) L 03/10/23 00:46 [place] # (Auto) 0.7 10^3/uL (0.2-0.9) 03/10/23 00:46 Eos # (Auto) 0.0 10^3/uL (0.0-0.8) 03/10/23 00:46 Baso # (Auto) 0.0 10^3/uL (0.0-0.1) 03/10/23 00:46 Nucleated RBC % (auto) 0.4 % 03/10/23 00:46 Nucleated RBCs # 0.0 /100WBC 03/10/23 00:46 PT 14.80 SECONDS (12.1-14.9) 03/10/23 00:46 INR 1.12 (0.8-1.2) 03/10/23 00:46 APTT 33.5 SECONDS (23.9-36.7) 03/10/23 00:46 Sodium 145 mmol/L (136-145) 03/10/23 00:46 Potassium 3.8 mmol/L (3.5-5.1) 03/10/23 00:46 Chloride 106 mmol/L (98-107) 03/10/23 00:46 Carbon Dioxide 30 mmol/L (22-29) H 03/10/23 00:46 Anion Gap 12.8 (5-19) 03/10/23 00:46 BUN 22 mg/dL (8-23) 03/10/23 00:46 Creatinine 1.2 mg/dL (0.7-1.2) 03/10/23 00:46 GFR Calculation 59.9 mL/min (90-130) L 03/10/23 00:46 Glucose 29 mg/dL (65-115) L* 03/10/23 00:46 POC Glucose 29 mg/dL (70-110) L* 03/10/23 01:52 Estimat Average Glucose 100 03/10/23 00:46 Hemoglobin A1c 5.1 % (4.0-6.0) 03/10/23 00:46 Calculated Osmolality 299 mOsm/kg (285-295) H 03/10/23 00:46 Lactic Acid 2.7 mmol/L (0.5-2.2) H 03/10/23 00:46 Calcium 8.3 mg/dL (8.5-10.5) L 03/10/23 00:46 Magnesium 2.0 mg/dL (1.7-2.3) 03/10/23 00:46 Total Bilirubin 0.5 mg/dL (0.15-1.2) 03/10/23 00:46 AST 31 U/L (0-40) 03/10/23 00:46 ALT 24 U/L (0-41) 03/10/23 00:46 Alkaline Phosphatase 233 U/L (40-130) H 03/10/23 00:46 C-Reactive Protein 74.3 mg/L (0.0-4.9) H 03/10/23 00:46 Total Protein 5.6 g/dL (6.6-8.7) L 03/10/23 00:46 Albumin 2.4 g/dL (3.5-5.2) L 03/10/23 00:46 Globulin 3.2 g/dL (1.3-4.6) 03/10/23 00:46 TSH 3.23 uIU/mL (0.27-4.20) 03/10/23 00:46 Urine Color Yellow (Yellow) 03/10/23 00:26 Urine Appearance Sl hazy (CLEAR) A 03/10/23 00:26 Urine pH 5 (5-7) 03/10/23 00:26 Ur Specific [place] 1.015 (1.005-1.030) 03/10/23 00:26 Urine Protein Neg (Negative) 03/10/23 00:26 Urine Glucose (UA) Norm (Normal) 03/10/23 00:26 Urine Ketones Negative (Negative) 03/10/23 00: Urine Blood Neg (Negative) 03/10/23 00: Urine Nitrate Negative (Negative) 03/10/23 00: Urine Bilirubin Neg (Negative) 03/10/23 00: Urine Urobilinogen Neg mg/dL (Negative) 03/10/23 00:26 Ur Leukocyte Esterase Trace (Negative) H 03/10/23 00:26 Urine RBC None /hpf (0-2) 03/10/23 00:26 Urine WBC 0-4 /hpf (0-5) H 03/10/23 00:26 Ur Squamous Epith Cells 0-4 /hpf (0-5) H 03/10/23 00:26 Amorphous Sediment Not Reportable 03/10/23 00:26 Urine Bacteria 1+ /hpf (NONE) H 03/10/23 00:26 Urine Mucus 2+ /hpf 03/10/23 00:26 Urine Yeast 3+ /hpf H 03/10/23 00:26 Urine Opiates Screen Positive ng/mL (Negative) H 03/10/23 00:26 Ur Barbiturates Screen Negative ng/mL (Negative) 03/10/23 00:26 Ur Phencyclidine Scrn Negative ng/mL (Negative) 03/10/23 00:26 Ur Amphetamines Screen Negative ng/mL (Negative) 03/10/23 00:26 U Benzodiazepines Scrn Positive ng/mL (Negative) H 03/10/23 00:26 Urine Cocaine Screen Negative ng/mL (Negative) 03/10/23 00:26 U Marijuana (THC) Screen Positive ng/mL (Negative) H 03/10/23 00:26 All radiology interpretation(s) finalized by discharge EKG Data EKG 1: I personally reviewed and interpreted this EKG as follows: EKG interpretation date: 03/10/23 EKG interpretation time: 00:24 Prior EKG tracings: not available for review Interpretation: EKG showed ventricular rate of 97 bpm, AR interval 190, QRS duration 169, QTc of 423, sinus rhythm, right axis deviation, right bundle branch block Discharge Plan Discharge Patient Disposition: Admitted As Inpatient Admit Provider: Lisandra Salazar Clinical Impression: Hypoglycemia associated with diabetes, H/O neck surgery Urinary tract infection Qualifiers: Urinary tract infection type: acute cystitis Hematuria presence: without hematuria Qualified Code(s): N30.00 - Acute cystitis without hematuria Condition: Stable Coding Level of Care Code ED [employer] for Lencho [place]
[2023-03-10 00:43] LABS: Add Urine Microscopic? YES; Bilirubin Urine Neg (Negative); Blood Urine Neg (Negative); Glucose Urine UA Norm (Normal); Ketones Urine Negative (Negative); Leukocyte Esterase Urine Trace (Negative); Nitrate Urine Negative (Negative); Protein Urine Neg (Negative); Specific Gravity, Urine 1.015 (1.005-1.030); Urine Appearance SL Hazy (CLEAR); Urine Color Yellow (Yellow); Urobilinogen Urine Neg (Negative); pH Urine 5 (5-7)
[2023-03-10 00:44] LABS: Add Urine Culture? Yes; Bacteria Urine 1+ /hpf; Mucus Urine 2+ /hpf; Squamous Epithelial Cell Urine 0-4 /hpf (0-5); WBC Urine 0-4 /hpf (0-5)
[2023-03-10 00:48] LABS: Amphetamines Screen Urine Negative (Negative); Barbiturates Screen Urine Negative (Negative); Benzodiazepines Screen Urine Positive (Negative); Cocaine Screen Urine Negative (Negative); Opiate Screen Urine Positive (Negative); PCP Screen Urine Negative (Negative); THC Screen Urine Positive (Negative)
--- NOTE | 2023-03-10 00:48 | P.CONIM_ITS ---
Providers/Reason For Consult Consulting Physician/Specialty*: Antwan Francisco MD neurology and epilepsy Reason for Consult*: Critical care code stroke ER bed #10 Primary Care Provider: Annika Richardson APN History of Present Illness History of Present Illness Niraj Ackerman is a 68 year old male with a history of type 2 diabetes mellitus, abdominal aortic aneurysm surgery December 2021, coronary artery bypass graft 16 years ago, lung cancer and bone cancer status post spinal surgery for left-sided weakness worse in the left lower extremity 6 weeks prior to presenting to the [facility] emergency room the night of 03/09/2023. According to the family, the patient underwent chemotherapy and vertebroplasty followed by reports of severe pain associated with left-sided weakness and decreased platelet count. Patient was discovered to have infection and was started on IV vancomycin. According to the family, the patient was in rehab for 2 weeks for the left lower extremity weakness which has continued. The family also stated the patient has been experiencing episodes of confusion at night. According to the patient's , the patient had 2 saavedra pie has and drank 2 cans of saavedra soda, nondiet as well as sweet tea. The patient sleeps in a recliner at home and he was reported to fall asleep around 9 PM on 03/09/2023. Their son arrived at the home around 10:45 PM. The patient was awakened by their dogs barking when the son was entering the house. It was at that time they noticed the patient was displaying more slurred speech, confusion, and staring and was moving his right arm a lot. The family contacted 911. The paramedics arrived and the patient serum glucose was reported to be 23. The patient was given 500 mg of IV D10 and blood sugar was reported to be 200. In the emergency room Accu-Chek was 81. In the emergency room, the patient's mental status improved but he still displayed some confusion. His speech was slightly dysarthric and he was moving all extremities but had residual left lower extremity weakness which the family stated is a chronic problem. They also informed me that the patient's confusion at night is not a new issuue. NIH = 2. Note: Due to the patient's history of long cancer and bone cancer with metastasis requiring chemotherapy and spinal surgery 6 weeks ago, weakness and decreased sensation which has been present for prior to and following his spinal surgery, the patient was not a candidate for tPA and no tPA was administered. Drug allergies: Amoxicillin which resulted in a rash Current medications: Tamsulosin 0.4 mg 2 capsules p.o. daily Potassium chloride 20 mEq p.o. daily Magnesium oxide 400 mg tablets 2 p.o. daily Glimepiride 2 mg p.o. daily Lisinopril 20 mg p.o. q. Metformin 1000 mg p.o. twice daily dronabinol 2.5 mg p.o. twice daily Folate 1 mg p.o. daily Neurontin 300 mg 2 capsules every 8 hours Florastor 250 mg p.o. twice daily Lasix 40 mg p.o. daily Lipitor 40 mg p.o. nightly Naloxone hydrochlorothiazide nasal spray 4 mg as needed Aspirin 1 p.o. daily Trazodone 100 mg p.o. nightly Ativan 0.5 mg p.o. nightly as needed Hydrocodone 10/325 mg p.o. 1 as needed Zanaflex 4 mg tablets 1 p.o. every 6 hours as needed Senna-s as needed Habits: The patient smokes 1/2 pack/day. Family history: Remarkable for a mother with lung cancer Review of Systems General: Reports: 10 or more systems reviewed and unremarkable except in HPI and below Medications/Allergies Home Medications Medication Instructions Recorded Confirmed Last Taken Type amlodipine 5 mg tablet 5 mg PO DAILY 03/04/22 03/01/23 03/01/23 History atorvastatin 40 mg tablet 40 mg PO DAILY 03/04/22 03/01/23 03/01/23 History docusate sodium 100 mg capsule 100 mg PO DAILY 03/04/22 03/01/23 03/01/23 History (Colace) fenofibrate nanocrystallized 145 145 mg PO DAILY 03/04/22 03/01/23 03/01/23 History mg tablet glimepiride 2 mg tablet 2 mg PO DAILY 03/04/22 03/01/23 03/01/23 History linagliptin 2.5 mg-metformin 1,000 1 tab PO BID 03/04/22 03/01/23 03/01/23 History mg tablet (Jentadueto) lisinopril 20 mg tablet 20 mg PO BID 03/04/22 03/01/23 03/01/23 History metoprolol tartrate 25 mg tablet 12.5 mg PO BID 03/04/22 03/01/23 03/01/23 History multivitamin 1 tab PO DAILY 03/04/22 03/01/23 03/01/23 History oxycodone 5 mg tablet 5 mg PO Q6H PRN Pain 03/04/22 03/01/23 03/01/23 History pioglitazone 45 mg tablet 45 mg PO DAILY 03/04/22 03/01/23 03/01/23 History polyethylene glycol 3350 17 gram 17 g PO DAILY PRN Constipation 03/04/22 03/01/23 03/01/23 History oral powder packet (Miralax) tramadol 50 mg tablet 50 - 100 mg PO Q4H PRN Pain 03/04/22 03/01/23 03/01/23 History diclofenac sodium 75 mg 75 mg PO Q12H PRN pain #20 tabs 09/20/22 03/01/23 03/01/23 Rx tablet,delayed release pregabalin 75 mg capsule (Lyrica) 75 mg PO BID #60 caps 09/20/22 03/01/23 03/01/23 Rx tizanidine 4 mg capsule 4 mg PO Q6H PRN muscle spasticity 09/20/22 03/01/23 03/01/23 Rx #20 caps vancomycin 1.25 gram/250 mL in 0.9 1.25 g IV Q24H 03/01/23 03/01/23 03/01/23 History % sodium chloride intravenous levofloxacin 500 mg tablet 500 mg PO DAILY 7 days #7 tabs 03/07/23 Unknown Rx Allergies Allergy/AdvReac Type Severity Reaction Status Date / Time amoxicillin Allergy ALGY-Rash Verified 03/06/23 18:59 PFSH Acute PFSH: Medical History Abdominal aortic aneurysm Diabetes mellitus Hyperlipidemia Hypertension Surgical History H/O abdominal aortic aneurysm repair Social History Smoking and tobacco status: former smoker Alcohol intake: former Vitals/I&O/Wt Last Vital Signs Temp 98.1 F 03/10/23 00:05 Pulse 97 03/10/23 00:29 Resp 23 H 03/10/23 00:29 BP 101/74 03/10/23 00:29 Pulse Ox 95 03/10/23 00:29 O2 Del Method Room Air 03/10/23 00:29 Weight last 48 hrs Weight 201 lb Physical Exam Narrative: NIH score =2 Note: The patient's episodes of nighttime confusion, left lower extremity weakness, sensory loss in the lower extremity, was baseline for the patient prior to him presenting to the [facility] emergency room. The patient is currently alert and oriented to person. His speech is mildly dysarthric but understandable. Patient follows commands. Head atraumatic. Patient has on a horseshoe neck collar. Pupils 4 mm round reactive light and accommodation. Extraocular movements intact. Visual bills appear to be full to confrontation. Motor testing 5/5 except for 2+/5 left lower extremity the patient was able to flex and lift the left leg against gravity. Sensory examination was intact to touch. There was questionable decreased pinprick in the left lower extremity. Deep tendon reflexes grossly symmetrical at 1-2+ plantar responses flexor bilaterally there was no clonus. Throat clear. Lungs revealed no obvious wheezes. Heart regular rhythm and rate. Chest/abdomen reveals signs of coronary artery bypass surgery and abdominal aortic aneurysm surgery extremities were negative for clubbing or cyanosis. Patient has a indwelling Coates at home. A&P Assessment and plan (1) Acute metabolic encephalopathy: Impression: 1. Acute metabolic encephalopathy 2. Hypoglycemia 3. Type 2 diabetes mellitus 4. Lung cancer and bone cancer status post chemotherapy 5. Spinal surgery for infection 6 weeks ago with residual left lower extremity weakness. The patient currently on IV vancomycin 6. History of decreased platelet 7. History of abdominal aortic aneurysm surgery 2021 8. History of coronary artery bypass graft 16 years ago Plan: 1. Recommend adjust patient's medications for diabetes since patient admitted with severe hypoglycemia blood sugar 23 despite patient eating 2-3 cream pies and drinking 2 saavedra sodas and sweet tea on the evening of 03/09/2023 2. Recommend patient have cardiac evaluation or have patient follow-up with his resource manager to assess cardiac status 3. The patient and the patient's family is aware of the potential health risks associated with the patient smoking 4. Monitor serum glucose 5. Rule out sepsis 6. Have the patient follow-up with the physicians addressing his lung cancer, bone cancer and spine infection (2) Hypoglycemia: Consult Attestations Medical Necessity Statement: Patient evaluated by neurology for critical care code stroke emergency room bed #10 Coding Level of Care Code 83682 Diagnoses Acute metabolic encephalopathy G93.41 Hypoglycemia E16.2 Time Spent (min) 30
[2023-03-10 00:55] LABS: Basophils % 0.1 %; Eosinophils % 0.3 %; Lymphocytes # 0.3 10^3/uL (0.8-4.8); Lymphocytes % 3.3 %; Mean Corpuscular Hemoglobin 31.5 pg (27-33); Mean Corpuscular Volume 112.4 fl (82-101); Mean Platelet Volume 12.4 fL (7.4-10.4); Monocytes # 0.7 10^3/uL (0.2-0.9); Monocytes % 8.7 %; Neutrophils # 6.66 10^3/uL (1.8-7.7); Neutrophils % 86.9 %; Nucleated Red Blood Cells % 0.4 %; Platelet Count 46 10^3/cmm (157-399); Red Blood Count 2.67 10^6/uL (3.85-5.65); Red Cell Distribution Width 21.4 % (12.1-15.1); White Blood Count 7.66 10^3/uL (3.29-11.43)
[2023-03-10 01:15] LABS: Lactic Sepsis W/Reflex 2.7 mmol/L (0.5-2.2)
[2023-03-10 01:26] LABS: INR 1.12 (0.8-1.2)
[2023-03-10 01:27] LABS: Alanine Aminotransferase 24 U/L (0-41); Albumin Level 2.4 g/dL (3.5-5.2); Alkaline Phosphatase 233 U/L (40-130); Anion Gap 12.8 (5-19); Aspartate Amino Transferase 31 U/L (0-40); Blood Urea Nitrogen 22 mg/dL (8-23); C Reactive Protein 74.3 mg/L (0.0-4.9); Calcium 8.3 mg/dL (8.5-10.5); Carbon Dioxide 30 mmol/L (22-29); Chloride 106 mmol/L (98-107); Globulin 3.2 g/dL (1.3-4.6); Glomerular Filtration Rate 59.9 mL/min (90-130); Osmolality Calculated 299 mOsm/kg (285-295); Partial Thromboplastin Time 33.5 SECONDS (23.9-36.7); Potassium 3.8 mmol/L (3.5-5.1); Sodium 145 mmol/L (136-145); Thyroid Stimulating Hormone 3.23 uIU/mL (0.27-4.20); Total Bilirubin 0.5 mg/dL (0.15-1.2); Total Protein 5.6 g/dL (6.6-8.7)
[2023-03-10 01:50] LABS: Glucose 29 mg/dL (65-115)
[2023-03-10] MEDS: dextrose 50% syringe 50 mL IVP ×2 (02:00→06:09)
[2023-03-10] MEDS: dextrose 10% 1,000 ML 75 ML IV ×2 (02:08→12:23)
[2023-03-10 02:11] LABS: Glucose Point of Care 29 mg/dL (70-110)
[2023-03-10 02:38] LABS: Reflex Lactate Order REFLEX LACTIC ORDERD
--- NOTE | 2023-03-10 03:03 | PC.NURSE ---
report called to dana in [facility]. all questions and concerns addressed at time of report.
--- NOTE | 2023-03-10 03:58 | PC.NURSE ---
This patient is c/o severe headache. He is unable to move his head unless someone holds it still. He reports he has had this headache since his surgery.His surgical incision is below his neck (Upper thoracic). Site looks good with small area of scabbing present. No redness or drainage observed. Patient has +4 pitting edema BLE, left arm and +3 anasarca to waist. Patient has single lumen PICC to right upper arm. Informed Dr Salazar of finding. to see patient.
--- NOTE | 2023-03-10 05:00 | PM.HP ---
Providers/Chief Complaint Admitting Physician: Lisandra Salazar MD Primary Care Provider: Annika Richardson APN Chief Complaint: LOW BLOOD SUGAR History of Present Illness Niraj Ackerman is a 68 year old male with history of metastatic bone cancer, recent neck surgery 1 month ago, acute metabolic encephalopathy, diabetes, hypertension, AAA s/p repair was brought in by family for altered mental status and unresponsiveness last night. On arrival in the ER he was found to have blood sugar of 40 all other vitals were normal. ER physician noted that patient has a facial droop and left-sided weakness but with further discussion with the family there was no new findings. He was also seen by neurologist for stroke , he was here 2 days ago for generalized anasarca and was found to have bilateral lower lobe opacities likely due to pneumonia. He was discharged on p.o. levofloxacin for 7 days. He is already on IV vancomycin daily s/p neck surgery 3 weeks ago In ER he received D50 x1, blood sugar improved to 195 and again went down to 34. No further history available, since family is not at bedside Review of Systems Narrative: Unable to obtain due to altered mental status Medications/Allergies Home Medications Medication Instructions Recorded Confirmed Last Taken Type glimepiride 2 mg tablet 2 mg PO DAILY 03/04/22 03/10/23 03/09/23 08:00 History Saccharomyces boulardii 250 mg 250 mg PO BID 03/10/23 03/10/23 03/09/23 17:00 History capsule (Florastor) aspirin 81 mg tablet,delayed 81 mg PO DAILY 03/10/23 03/10/23 03/09/23 08:00 History release atorvastatin 40 mg tablet 40 mg PO BEDTIME 03/10/23 03/10/23 03/09/23 20:00 History dronabinol 2.5 mg capsule 2.5 mg PO BID 03/10/23 03/10/23 03/09/23 17:00 History folic acid 1 mg tablet 1 mg PO DAILY 03/10/23 03/10/23 03/09/23 08:00 History furosemide 40 mg tablet 40 mg PO DAILY 03/10/23 03/10/23 03/09/23 08:00 History gabapentin 300 mg capsule 600 mg PO Q8H 03/10/23 03/10/23 03/09/23 21:00 History hydrocodone 10 mg-acetaminophen 1 tab PO Q6H PRN Pain 03/10/23 03/10/23 03/09/23 History 325 mg tablet lisinopril 20 mg tablet 20 mg PO DAILY 03/10/23 03/10/23 03/09/23 08:00 History lorazepam 0.5 mg tablet 0.5 mg PO BEDTIME PRN Anxiety 03/10/23 03/10/23 03/09/23 History magnesium oxide 400 mg (241.3 mg 800 mg PO DAILY 03/10/23 03/10/23 03/09/23 08:00 History magnesium) tablet (MagOx) metformin 1,000 mg tablet 1,000 mg PO BID 03/10/23 03/10/23 03/09/23 17:00 History naloxone 4 mg/actuation nasal spray 4 mg intranasal Q3M PRN overdose 03/10/23 03/10/23 Unknown History pantoprazole 40 mg tablet,delayed 40 mg PO DAILY 03/10/23 03/10/23 03/09/23 08:00 History release potassium chloride 20 mEq 20 meq PO DAILY 03/10/23 03/10/23 03/09/23 08:00 History tablet,extended release sennosides 8.6 mg-docusate sodium 1 tab-cap PO DAILY PRN Constipation 03/10/23 03/10/23 Unknown History 50 mg tablet (Senna-S) tamsulosin 0.4 mg capsule 0.8 mg PO 1700 03/10/23 03/10/23 03/09/23 18:00 History tizanidine 4 mg tablet 4 mg PO Q6H PRN Muscle Spasm 03/10/23 03/10/23 03/09/23 History trazodone 100 mg tablet 100 mg PO BEDTIME 03/10/23 03/10/23 03/09/23 20:00 History vancomycin 1.25 gram/250 mL in 0.9 1 g IV Q24H 03/10/23 03/10/23 03/09/23 History % sodium chloride intravenous Allergies Allergy/AdvReac Type Severity Reaction Status Date / Time amoxicillin Allergy ALGY-Rash Verified 03/06/23 18:59 PFSH Acute PFSH: Medical History Abdominal aortic aneurysm Diabetes mellitus Hyperlipidemia Hypertension Surgical History H/O abdominal aortic aneurysm repair Social History Smoking and tobacco status: former smoker Alcohol intake: former Vitals/I&O/Wt Last Vital Signs Temp 97.5 F L 03/10/23 04:34 Pulse 91 03/10/23 04:34 Resp 22 H 03/10/23 04:34 BP 119/81 03/10/23 04:34 Pulse Ox 98 03/10/23 04:34 O2 Del Method Room Air 03/10/23 04:34 03/09/23 03/09/23 03/10/23 14:59 22:59 06:59 Output Total 700 / 700 Balance -700 / -700 Weight last 48 hrs Weight 91.172 kg Physical Exam Narrative: He is lethargic, responds to verbal stimuli but not comprehensive Chest bilateral coarse rhonchi present, abdominal breathing pattern seen Cardiovascular normal heart sounds regular rhythm Abdomen soft distended nontender normal bowel sounds Extremities bilateral 3+ pitting lower extremity edema present Data 03/10/23 00:46 03/10/23 00:46 Micro: Microbiology 03/10/23 01:03 Blood Culture - Preliminary Blood SPECIMEN COLLECTED 03/10/23 00:57 Blood Culture - Preliminary Blood SPECIMEN COLLECTED CXR: Radiologist's impression: IMPRESSION: 1. ? Moderate bilateral pleural effusions. 2. ? Possible bibasal infiltrates versus atelectasis. ? A&P Assessment and plan (1) Hypoglycemia: (2) Acute metabolic encephalopathy: Plan 68-year-old male with history of metastatic bone cancer generalized anasarca who was brought in by family for altered mental status and found to have blood sugar of 40 AMS secondary to acute metabolic encephalopathy secondary to persistent hypoglycemia, etiology unknown but likely could be secondary to metastatic process. Will continue D10 drip at 100 mL/h Monitor blood sugars every 1 hour to keep more than 70 No visible source of sepsis, but will cover with IV vancomycin 1 g every 12 And IV Aztreonam 1g once now. Vital stable no need for supplemental oxygen for now N.p.o. except medications IV Pepcid 20 mg every 12 hours for stress ulcer prophylaxis Subcutaneous Lovenox 30 mg daily for DVT prophylaxis Tried calling son Mr. Ackerman for CODE STATUS and left a message. He is full code for now Attestations Medical Necessity Statement*: He might need continued hospitalization for 2 days for further work-up for altered mental status and persistent hypoglycemia and absence of sepsis. Time Spent in Patient Care: 45 minutes Coding Level of Care Code Critical Care >/= 30 minutes Diagnoses Hypoglycemia E16.2 Acute metabolic encephalopathy G93.41 Time Spent (min) 45
[2023-03-10 05:06] LABS: Glucose Point of Care 195 mg/dL (70-110)
[2023-03-10 05:06] LABS: Glucose Point of Care 41 mg/dL (70-110)
[2023-03-10 05:23] LABS: Glucose Point of Care 34 mg/dL (70-110)
[2023-03-10 05:49] LABS: Lactic Acid level (Lactate) 2.4 mmol/L (0.5-2.2)
[2023-03-10] MEDS: enoxaparin 30 mg/0.3 mL Syringe SUBCUT (06:09)
[2023-03-10] MEDS: famotidine 20 mg/2 mL INJ IVP ×2 (06:09→18:19)
[2023-03-10] MEDS: aztreonam 1,000 MG in sodium chloride 0.9% (plus) 50 ML 100 MG IV (06:09)
[2023-03-10 06:39] LABS: Glucose Point of Care 175 mg/dL (70-110)
[2023-03-10 07:07] LABS: Glucose Point of Care 78 mg/dL (70-110)
[2023-03-10] MEDS: vancomycin 1,000 MG in sodium chloride 0.9% 250 ML 250 MG IV ×2 (07:31→19:40)
[2023-03-10 08:14] LABS: Glucose Point of Care 44 mg/dL (70-110)
[2023-03-10] MEDS: lisinopril 20 mg Tablet PO (09:01)
[2023-03-10] MEDS: aspirin 81 mg EC Tablet PO (09:01)
[2023-03-10] MEDS: FUROsemide 10 mg/mL SDV 4mL 40 MG IVP (09:01)
[2023-03-10 10:22] LABS: Glucose Point of Care 51 mg/dL (70-110)
[2023-03-10 10:22] LABS: Glucose Point of Care 48 mg/dL (70-110)
--- NOTE | 2023-03-10 10:27 | P.MISC_ITS ---
Miscellaneous Note Note: Patient was seen twice, at the bedside at second visit Records reviewed from [place] Patient was at [place] for epidural abscess, he was discharged in January and then required 2 weeks of rehab Patient has history of metastatic known small cell lung cancer with mets to spine C5-T3 status post laminectomy with washout on 01/28/2023 Blood culture was positive with Staph epidermidis ID recommended vancomycin 750 mg twice daily for 6 weeks starting 01/27 patient was asked to follow-up with [place] within 2 weeks Patient has type 2 diabetes Next surgical follow-up appointment is on 03/24 Patient has pancytopenia related to chemotherapy He also has significant thrombocytopenia Patient has received carboplatin plus pemetrexed plus Keytruda palliative radiotherapy with follow-up with radiation oncology in [place] Patient has a neurogenic bladder status post Coates catheter Echo from 01/30 from [place] showing EF 17% he was on Lasix 40 mg twice daily This morning patient is still confused Blood sugar 51 currently on D10 Seems fluid overloaded with anasarca I will give him Lasix, start BiPAP to help him decrease work of breathing He saturating 92% on room air at the bedside We will make phone calls to the [facility] because he was supposed to follow-up for ID within 2 weeks and he was discharged on 01/27 Patient is high risk for sudden cardiac arrest, he is full code EF is 17% was not aware of this
[2023-03-10 11:11] LABS: Glucose Point of Care 44 mg/dL (70-110)
[2023-03-10] MEDS: dronabinol 2.5 mg Capsule PO ×2 (11:40→18:18)
[2023-03-10] MEDS: potassium chloride ER 20 mEq Tablet PO ×2 (11:40→18:19)
--- NOTE | 2023-03-10 11:50 | PC.NURSE ---
Niraj is complaining of neck pain. Notified provider and he gave an order for oxycodone 5 Q6hr PRN pain.
[2023-03-10] MEDS: glucagon 1 mg/mL KIT 1 mL IM ×2 (12:03→14:33)
[2023-03-10] MEDS: hydrocortisone 100 mg/2 mL SDV IVP ×2 (12:03→23:56)
[2023-03-10] MEDS: oxyCODONE-APAP 5-325 mg Tablet 1 TAB PO ×2 (12:07→19:38)
[2023-03-10 12:35] LABS: Glucose Point of Care 47 mg/dL (70-110)
[2023-03-10 13:06] LABS: Glucose Point of Care 77 mg/dL (70-110)
[2023-03-10 14:08] LABS: Estmated Average Glucose 100; Hemoglobin A1C 5.1 % (4.0-6.0)
[2023-03-10 14:15] LABS: Glucose Point of Care 37 mg/dL (70-110)
[2023-03-10] MEDS: dextrose 50% syringe 50 mL 100 ML IVP (14:34)
[2023-03-10 15:21] LABS: Glucose Point of Care 169 mg/dL (70-110)
[2023-03-10 16:25] LABS: Glucose Point of Care 154 mg/dL (70-110)
[2023-03-10] MEDS: tamsulosin 0.4 mg Capsule 0.8 MG PO (18:18)
[2023-03-10 18:21] LABS: Glucose Point of Care 157 mg/dL (70-110)
[2023-03-10 18:21] LABS: Glucose Point of Care 220 mg/dL (70-110)
--- NOTE | 2023-03-10 20:45 | PC.NURSE ---
Patient and family are wondering if we can restart patient's home dose of ativan. Informed Dr Salazar and received order to restart home medication.
[2023-03-10 21:10] LABS: Glucose Point of Care 240 mg/dL (70-110)
[2023-03-10 21:19] LABS: Glucose Point of Care 230 mg/dL (70-110)
[2023-03-10] MEDS: LORazepam 0.5 mg Tablet PO (21:27)
[2023-03-10] MEDS: atorvastatin 40 mg Tablet PO (21:27)
[2023-03-10] MEDS: FUROsemide 10 mg/mL SDV 10mL 60 MG IVP (21:27)
[2023-03-10 23:42] LABS: Glucose Point of Care 255 mg/dL (70-110)
[2023-03-11] VITALS (65 sets, daily range): BP systolic 79–151; BP diastolic 54–93; PULSE 64–109; RESP 15–30; TEMP 36–36.9; O2SAT 88–100
[2023-03-11 00:58] LABS: Glucose Point of Care 221 mg/dL (70-110)
[2023-03-11 00:58] LABS: Glucose Point of Care 254 mg/dL (70-110)
[2023-03-11] MEDS: ipratropium-albuterol 3 mL Neb INHALATION ×4 (01:01→19:44)
[2023-03-11] MEDS: oxyCODONE-APAP 5-325 mg Tablet 1 TAB PO ×2 (01:17→09:19)
--- NOTE | 2023-03-11 01:20 | PC.NURSE ---
This patient is very restless and agitated. Wanting to climb out of bed due to pain in his back and chest. Says he can't breathe pulling at shirt to get more air in . Refusing to wear bipap at this time. Informed Dr Salazar and received order for onetime dose of Ativan 1mg IVP. RBVO
[2023-03-11] MEDS: LORazepam 2 mg/mL INJ 1 mL 1 MG IVP ×2 (01:28→10:53)
[2023-03-11] MEDS: dextrose 10% 1,000 ML 75 ML IV (02:28)
--- NOTE | 2023-03-11 03:32 | PC.NURSE ---
1mg adivan administered at 0128. patient continues to be restless and agitated.
[2023-03-11] MEDS: HYDROmorphone 1 mg/mL INJ 1 mL 2 MG IVP (04:00)
[2023-03-11 04:23] LABS: Glucose Point of Care 245 mg/dL (70-110)
--- NOTE | 2023-03-11 04:32 | PC.NURSE ---
Addendum entered by Vanita Barger RN 03/11/23 04:36: Patient was agitated and restless, stating pain in neck and back. Dr notified via phone call. gave telephone order for 2mg dilaudid once. Original Note: administered 2mg diaudid IVP at 0400. Patient resting comfortably in bed with eyes closed.
[2023-03-11 05:09] LABS: Basophils % 0.1 %; Hematocrit 27.6 % (37-53); Lymphocytes # 0.3 10^3/uL (0.8-4.8); Lymphocytes % 3.9 %; Mean Corpuscular HGB Conc 28.3 g/dL (30-55); Mean Corpuscular Hemoglobin 31.2 pg (27-33); Mean Corpuscular Volume 110.4 fl (82-101); Mean Platelet Volume 13.4 fL (7.4-10.4); Monocytes # 0.3 10^3/uL (0.2-0.9); Monocytes % 4.8 %; Neutrophils # 6.21 10^3/uL (1.8-7.7); Neutrophils % 90.3 %; Nucleated Red Blood Cells % 0 %; Platelet Count 39 10^3/cmm (157-399); Red Cell Distribution Width 21.2 % (12.1-15.1); White Blood Count 6.88 10^3/uL (3.29-11.43)
[2023-03-11 05:21] LABS: INR 1.17 (0.8-1.2)
[2023-03-11 05:22] LABS: Partial Thromboplastin Time 35.3 SECONDS (23.9-36.7)
[2023-03-11 05:30] LABS: Alanine Aminotransferase 37 U/L (0-41); Albumin Level 2.2 g/dL (3.5-5.2); Alkaline Phosphatase 259 U/L (40-130); Anion Gap 12.8 (5-19); Aspartate Amino Transferase 52 U/L (0-40); Blood Urea Nitrogen 23 mg/dL (8-23); Calcium 8.1 mg/dL (8.5-10.5); Carbon Dioxide 29 mmol/L (22-29); Chloride 101 mmol/L (98-107); Globulin 3.5 g/dL (1.3-4.6); Glomerular Filtration Rate 59.9 mL/min (90-130); Glucose 221 mg/dL (65-115); Osmolality Calculated 296 mOsm/kg (285-295); Potassium 4.8 mmol/L (3.5-5.1); Sodium 138 mmol/L (136-145); Total Bilirubin 0.6 mg/dL (0.15-1.2); Total Protein 5.7 g/dL (6.6-8.7)
[2023-03-11 05:33] LABS: Lactic Sepsis W/Reflex 1.6 mmol/L (0.5-2.2)
[2023-03-11 05:35] LABS: NT Pro B Type Natriuretic Pept 20477 pg/mL (0-125); Procalcitonin 2.41 ng/mL (0-0.5)
[2023-03-11] MEDS: vancomycin 1,000 MG in sodium chloride 0.9% 250 ML 250 MG IV ×2 (06:11→17:43)
[2023-03-11] MEDS: enoxaparin 30 mg/0.3 mL Syringe SUBCUT (06:12)
[2023-03-11] MEDS: famotidine 20 mg/2 mL INJ IVP ×2 (06:13→17:43)
--- NOTE | 2023-03-11 06:24 | PC.NURSE ---
patient BG was 398. Dr notified, gave verbal order to stop D10, do not give insulin per dr orders.
[2023-03-11 06:30] LABS: Glucose Point of Care 398 mg/dL (70-110)
[2023-03-11 06:30] LABS: Glucose Point of Care 232 mg/dL (70-110)
[2023-03-11 07:10] LABS: Glucose Point of Care 67 mg/dL (70-110)
[2023-03-11 07:16] LABS: Glucose Point of Care 255 mg/dL (70-110)
[2023-03-11 08:25] LABS: Glucose Point of Care 283 mg/dL (70-110)
[2023-03-11] MEDS: OLANZapine 10 mg VIAL IM (09:02)
[2023-03-11] MEDS: FUROsemide 10 mg/mL SDV 10mL 60 MG IVP (09:14)
[2023-03-11 09:16] LABS: Glucose Point of Care 279 mg/dL (70-110)
--- NOTE | 2023-03-11 09:29 | USR_ITS ---
PROCEDURE INFORMATION: Exam: US Duplex Lower Extremity Veins, Bilateral Exam date and time: 03/11/2023 10:36 AM Age: 68 years old Clinical indication: Edema, localized; Lower extremity, bilateral; Additional info: Leg swelling TECHNIQUE: Imaging protocol: Real-time duplex ultrasound of the bilateral extremities with 2-D martinez scale, color Doppler flow and spectral waveform analysis including responses to compression and other maneuvers (when performed) with image documentation. Complete exam focused on the lower extremity veins. COMPARISON: No relevant prior studies available. FINDINGS: Right deep veins: Unremarkable. The common femoral, femoral, proximal profunda femoral and popliteal veins are patent without thrombus. Normal Doppler waveforms. Normal compressibility and/or augmentation response. Left deep veins: Unremarkable. The common femoral, femoral, proximal profunda femoral and popliteal veins are patent without thrombus. Normal Doppler waveforms. Normal compressibility and/or augmentation response. Superficial veins: Bilateral saphenofemoral junctions are patent without thrombus. Soft tissues: Reticulated soft tissue edema of both lower extremities. US/CV venous duplex [facility] [id number] IMPRESSION: No evidence of deep vein thrombosis.
[2023-03-11 10:29] LABS: Glucose Point of Care 356 mg/dL (70-110)
--- NOTE | 2023-03-11 11:52 | P.PN_ITS ---
Subjective Subjective: Drop in hemoglobin likely dilutional Patient has pancytopenia Platelet count 39,000 Discontinue Lovenox Hemoglobin 7.8 Patient is agitated and delirious Could not sleep all night Discontinue steroids Had a long discussion with the who is at the bedside, we discussed about palliative versus hospice, patient is in fluid overload, with EF 17% I do not think he is a good candidate for chemotherapy is wanting to discuss with the rest of the family members and let us know As per the her never wanted to be on any machines/life support Vitals/I&O/Wt Last Vital Signs Temp 98.4 F 03/11/23 04:00 Pulse 92 03/11/23 08:00 Resp 30 H 03/11/23 09:31 BP 131/90 03/11/23 08:00 Pulse Ox 96 03/11/23 09:19 O2 Del Method Nasal Cannula 03/11/23 08:00 O2 Flow Rate 3 03/11/23 07:54 FiO2 24 03/11/23 10:00 03/10/23 03/11/23 03/11/23 22:59 06:59 14:59 Intake Total 490 / 1848.75 1000 / 2848.75 596.25 / 596.25 Output Total 700 / 1400 150 / 1550 Balance -210 / 448.75 850 / 1298.75 596.25 / 596.25 Weight last 48 hrs Weight 91.172 kg Physical Exam Narrative: Patient is agitated Moving his extremities Anasarca 3+ edema of legs Dependent edema around sacral area and flanks Currently on room air Opens eyes but not coherent Slurred speech is chronic Lower extremity weakness is chronic Chronic indwelling catheter is at the bedside Data 03/11/23 04:04 03/11/23 04:04 Micro: Microbiology 03/10/23 01:03 Blood Culture - Preliminary Blood NEGATIVE TO DATE 03/10/23 00:57 Blood Culture - Preliminary Blood NEGATIVE TO DATE A&P Assessment and plan (1) Hypoglycemia associated with diabetes: (2) Urinary tract infection: Qualifiers: Hematuria presence: without hematuria Urinary tract infection type: acute cystitis Qualified Code(s): N30.00 - Acute cystitis without hematuria (3) H/O neck surgery: (4) Acute metabolic encephalopathy: (5) Pneumonia of both lower lobes: Qualifiers: Pneumonia type: due to unspecified organism Qualified Code(s): J18.9 - Pneumonia, unspecified organism (6) Edema: Qualifiers: Edema type: unspecified Qualified Code(s): R60.9 - Edema, unspecified (7) Diabetes mellitus: (8) Abdominal aortic aneurysm: (9) CHF exacerbation: (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, with delusions: (11) Thrombocytopenia: Plan Acute delirium related to steroid-induced psychosis Discontinued steroids which were given for hypoglycemic event yesterday We will give him Zyprexa and Ativan patient was not able to sleep all night Patient is afebrile I do not suspect meningitis Recent neck surgery Recent epidural abscess drainage Metabolic encephalopathy related to pneumonia, UTI No significant improvement Continue antibiotics Patient is getting vancomycin and cefepime Pancytopenia listed on [facility] records Currently patient is anemic and thrombocytopenia Discontinue Lovenox Acute systolic CHF exacerbation EF 17% as per [facility] records Continue diuretics Significant urine output Non-small cell lung cancer with mets to bone, mets to spine C5-T3 status post laminectomy washout 01/28 Epidural abscess status post intervention Patient was getting IV vancomycin 1250 mg daily at outpatient settings Considering current debilitated state I do think patient would be a good candidate to resume his chemo, we discussed palliative care with the family who will let us know about the final decision I did call [facility], they have a 7-day wait. Family does not want to need to be transferred at this point Patient is at risk of sudden cardiac arrest considering low EF and worsening of condition, not a candidate for AICD CODE STATUS: is stating that he does not want his to stay alive on machines he never wanted that Guarded prognosis Attestations Medical Necessity Statement*: Continue medical management Diagnoses Hypoglycemia associated with diabetes E11.649 Urinary tract infection N30.00 Hematuria presence: without hematuria Urinary tract infection type: acute cystitis H/O neck surgery Z98.890 Acute metabolic encephalopathy G93.41 Pneumonia of both lower lobes J18.9 Pneumonia type: due to unspecified organism Edema R60.9 Edema type: unspecified Diabetes mellitus E11.9 Abdominal aortic aneurysm I71.4 CHF exacerbation I50.9 Steroid-induced psychosis, with delusions F19.950 Thrombocytopenia D69.6
[2023-03-11] MEDS: morphine 4 mg/mL SDV 1 mL 2 MG IVP ×2 (12:50→19:17)
[2023-03-11] MEDS: cefepime 2,000 MG in sodium chloride 0.9% (plus) 50 ML 100 MG IV ×2 (12:51→23:35)
[2023-03-11] MEDS: dexmedetomidine 400 MCG in sodium chloride 0.9% (100 ml) 100 ML IV (13:46)
[2023-03-11 17:45] LABS: Glucose Point of Care 207 mg/dL (70-110)
[2023-03-11 17:58] LABS: Vancomycin Trough 22.3 ug/mL (10-15)
[2023-03-11] MEDS: LORazepam 2 mg/mL INJ 1 mL 0.5 MG IVP (21:57)
[2023-03-11 23:36] LABS: Glucose Point of Care 211 mg/dL (70-110)
[2023-03-12] VITALS (102 sets, daily range): BP systolic 84–166; BP diastolic 58–105; PULSE 63–118; RESP 17–36; TEMP 35.8–36.9; O2SAT 23–100; BMI 28.3
[2023-03-12] MEDS: albumin 25 G/100 ML BAG 60 G IV ×3 (01:08→15:45)
--- NOTE | 2023-03-12 01:30 | PC.NURSE ---
Shamar Qiu Patient's temperature 96.[address] Le notified; shamar qiu applied to patient.
[2023-03-12] MEDS: morphine 4 mg/mL SDV 1 mL 2 MG IVP ×3 (01:34→20:25)
[2023-03-12] MEDS: ipratropium-albuterol 3 mL Neb INHALATION ×3 (01:37→20:30)
[2023-03-12] MEDS: dexmedetomidine 400 MCG in sodium chloride 0.9% (100 ml) 100 ML 16.59 MCG IV ×2 (01:42→20:36)
--- NOTE | 2023-03-12 01:45 | PC.NURSE ---
Lasix Patient's breathing becoming increasingly labored with audible wheezing and crackles heard upon entering patient's room. +2 pitting edema noted throughout all extremities. Dr. Le notified; order received for 60 mg lasix IV Q12HR. See MAR for details.
[2023-03-12 01:47] LABS: Glucose Point of Care 199 mg/dL (70-110)
[2023-03-12] MEDS: FUROsemide 10 mg/mL SDV 10mL 60 MG IVP ×2 (02:10→13:49)
[2023-03-12 03:58] LABS: Basophils % 0.1 %; Hematocrit 27.6 % (37-53); Lymphocytes # 0.3 10^3/uL (0.8-4.8); Lymphocytes % 3.8 %; Mean Corpuscular HGB Conc 27.9 g/dL (30-55); Mean Corpuscular Volume 111.3 fl (82-101); Mean Platelet Volume 12.2 fL (7.4-10.4); Monocytes # 0.6 10^3/uL (0.2-0.9); Monocytes % 9.1 %; Neutrophils # 5.97 10^3/uL (1.8-7.7); Neutrophils % 86.1 %; Nucleated Red Blood Cells % 0 %; Platelet Count 38 10^3/cmm (157-399); Red Blood Count 2.48 10^6/uL (3.85-5.65); Red Cell Distribution Width 21.3 % (12.1-15.1); White Blood Count 6.93 10^3/uL (3.29-11.43)
[2023-03-12 04:36] LABS: Cortisol Random 35.72 ug/dL (2.47-19.5)
[2023-03-12 04:56] LABS: Anion Gap 18.1 (5-19); Blood Urea Nitrogen 29 mg/dL (8-23); Calcium 8.5 mg/dL (8.5-10.5); Carbon Dioxide 25 mmol/L (22-29); Chloride 102 mmol/L (98-107); Glomerular Filtration Rate 59.9 mL/min (90-130); Glucose 226 mg/dL (65-115); Osmolality Calculated 305 mOsm/kg (285-295); Potassium 4.1 mmol/L (3.5-5.1); Sodium 141 mmol/L (136-145)
[2023-03-12] MEDS: famotidine 20 mg/2 mL INJ IVP ×2 (05:37→17:16)
[2023-03-12] MEDS: vancomycin 1,000 MG in sodium chloride 0.9% 250 ML 250 MG IV (05:37)
[2023-03-12 06:29] LABS: Glucose Point of Care 249 mg/dL (70-110)
[2023-03-12] MEDS: dexmedetomidine 400 MCG in sodium chloride 0.9% (100 ml) 100 ML 14.22 MCG IV (08:01)
[2023-03-12] MEDS: LORazepam 2 mg/mL INJ 1 mL 0.5 MG IVP ×4 (08:33→22:29)
--- NOTE | 2023-03-12 09:24 | PC.NURSE ---
restless and uncomfortable prior .. doctor here gave morphine and ativan
[2023-03-12] MEDS: morphine 4 mg/mL SDV 1 mL IVP ×2 (11:51→15:45)
[2023-03-12] MEDS: cefepime 2,000 MG in sodium chloride 0.9% (plus) 50 ML 100 MG IV (11:52)
[2023-03-12] MEDS: dexmedetomidine 400 MCG in sodium chloride 0.9% (100 ml) 100 ML 21.33 MCG IV (13:49)
--- NOTE | 2023-03-12 16:17 | P.PN_ITS ---
Subjective Subjective: Remains confused. He does express that he is in pain. He is in restraints and continues to have intermittent episodes of agitation. Vitals/I&O/Wt Last Vital Signs Temp 98.4 F 03/12/23 13:00 Pulse 81 03/12/23 14:00 Resp 24 H 03/12/23 15:45 BP 111/73 03/12/23 14:00 Pulse Ox 99 03/12/23 14:00 O2 Del Method Room Air 03/12/23 08:35 O2 Flow Rate 3 03/11/23 13:39 FiO2 24 03/12/23 14:00 03/12/23 03/12/23 03/12/23 06:59 14:59 22:59 Intake Total 497.368 / 1441.848 307.325 / 307.325 Output Total 750 / 1630 Balance -252.632 / -188.152 307.325 / 307.325 Weight last 48 hrs Weight 203 lb 6.4 oz Physical Exam Narrative: General: Anxious appearing patient. He is uncomfortable appearing, expresses having pain. HEENT: Normocephalic, Atraumatic. External ears normal. Nasal passages patent without drainage. MMM. Heart: RRR. Resp: LCTA. No respiratory distress, no use of accessory muscles. Abd: Soft, non-tender. Non-distended. Extremities: No edema. Skin: No rash or lesions on exposed areas. Urinary Catheter Management: Coates: Cath Placed During This Visit: no Reason for Continuing Indwelling Catheter: Accurate Measurement of Urinary Output in Critically Ill Patients Data 03/12/23 03:05 03/12/23 03:05 A&P Assessment and plan (1) Hypoglycemia associated with diabetes: (2) Urinary tract infection: Qualifiers: Hematuria presence: without hematuria Urinary tract infection type: acute cystitis Qualified Code(s): N30.00 - Acute cystitis without hematuria (3) H/O neck surgery: (4) Acute metabolic encephalopathy: (5) Pneumonia of both lower lobes: Qualifiers: Pneumonia type: due to unspecified organism Qualified Code(s): J18.9 - Pneumonia, unspecified organism (6) Edema: Qualifiers: Edema type: unspecified Qualified Code(s): R60.9 - Edema, unspecified (7) Diabetes mellitus: (8) Abdominal aortic aneurysm: (9) CHF exacerbation: (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 Continue close ICU monitoring. No indication of meningitis at this time. Continue IV abx for UTI and recent treatment of epidural abscess. No further episodes of hypoglycemia. We will continue Accu-Cheks and insulin regimen. He is currently on Precedex drip due to agitation. Continues to have very significant anemia and thrombocytopenia. His hemoglobin is 7.7, his platelets are 38. We will hold on VTE prophylaxis. He is receiving IV pain medication and antianxiety. Will up his morphine to 4 mg every 4 given his continued expressions of pain. I discussed with his that patient may be a good candidate for palliative therapy or hospice given his current state and his poor prognosis. She has not made a decision at this time as to whether or not to pursue this route. She would like to give antibiotics and monitoring a little longer before Hospice referral. I did discuss that with his metastatic cancer, his severely reduced heart function, and with his altered mental state that he is at high risk for sudden clinical deterioration, and . She is aware that his situation is extremely sensitive. She says that she will discuss with the physician on tomorrow after she has given this some more thought. Code Status: AND IVF: None DVT PPx: None (platelets at 38) GI PPx: None ABx: Vancomycin, cefepime Diet: Soft mechanical Discharge plan: To be determined Attestations Medical Necessity Statement*: Will need continued ICU stay for treatment and work-up of her altered mental st atus, urinary tract infection, IV antibiotics. Coding Level of Care Code Critical Care >/= 30 minutes Critical care time (in minutes): 35 The high probability of a clinically significant, sudden or life threatening deterioration, as referenced in this documentation, required my full and direct attention, intervention and personal management. The critical care time shown is in addition to time spent performing any reported separately billable procedures and includes the following: [x] Data and vital sign review and interpretation [x ] Patient assessment, examination and intervention [x] Medication orders and management [x] Patient/Family updates as able [x] Care Coordination and Documentation. Diagnoses Hypoglycemia associated with diabetes E11.649 Urinary tract infection N30.00 Hematuria presence: without hematuria Urinary tract infection type: acute cystitis H/O neck surgery Z98.890 Acute metabolic encephalopathy G93.41 Pneumonia of both lower lobes J18.9 Pneumonia type: due to unspecified organism Edema R60.9 Edema type: unspecified Diabetes mellitus E11.9 Abdominal aortic aneurysm I71.4 CHF exacerbation I50.9 Steroid-induced psychosis, with delusions F19.950 Thrombocytopenia D69.6
[2023-03-12 17:15] LABS: Glucose Point of Care 237 mg/dL (70-110)
[2023-03-12] MEDS: fentaNYL 25 mcg Patch 1 PATCH TRANSDERMA (18:36)
--- NOTE | 2023-03-12 18:56 | PC.NURSE ---
temp return to normal off warming blanket had episode of heart rate down and resp rate down blood pressure talked with doctor wants pt comfortable no lpain but not make comfort care... order given
[2023-03-12 21:38] LABS: Glucose Point of Care 216 mg/dL (70-110)
--- NOTE | 2023-03-12 22:00 | PC.NURSE ---
Blood sugar Patient's blood sugar remaining elevated in the 200s. Dr. Azevedo notified; no new orders received.
[2023-03-13] VITALS (55 sets, daily range): BP systolic 99–154; BP diastolic 63–102; PULSE 74–121; RESP 15–30; TEMP 36.8–37.4; O2SAT 91–100; BMI 27.8
[2023-03-13] MEDS: cefepime 2,000 MG in sodium chloride 0.9% (plus) 50 ML 100 MG IV ×2 (00:12→11:37)
[2023-03-13] MEDS: albumin 25 G/100 ML BAG 60 G IV ×2 (01:07→08:17)
--- NOTE | 2023-03-13 01:29 | PC.NURSE ---
Wound Stage 3 ulcer present on patient's sacrum. Dressing change performed: maxorb alginate and optifoam applied. Dr. Le notified, no new orders received.
[2023-03-13] MEDS: morphine 4 mg/mL SDV 1 mL 2 MG IVP ×4 (01:38→17:14)
[2023-03-13 01:54] LABS: Glucose Point of Care 247 mg/dL (70-110)
[2023-03-13] MEDS: ipratropium-albuterol 3 mL Neb INHALATION ×2 (02:35→07:40)
[2023-03-13] MEDS: FUROsemide 10 mg/mL SDV 10mL 60 MG IVP (02:44)
[2023-03-13] MEDS: LORazepam 2 mg/mL INJ 1 mL 0.5 MG IVP ×2 (02:44→08:01)
[2023-03-13] MEDS: dexmedetomidine 400 MCG in sodium chloride 0.9% (100 ml) 100 ML 11.85 MCG IV ×3 (03:18→23:50)
[2023-03-13] MEDS: vancomycin 1,250 MG/250 ML PIGGYBACK 200 MG IV (04:36)
[2023-03-13] MEDS: famotidine 20 mg/2 mL INJ IVP (04:36)
[2023-03-13 05:14] LABS: Glucose Point of Care 255 mg/dL (70-110)
[2023-03-13 06:22] LABS: Basophils % 0.2 %; Hematocrit 26.6 % (37-53); Lymphocytes # 0.3 10^3/uL (0.8-4.8); Lymphocytes % 5.4 %; Mean Corpuscular HGB Conc 28.6 g/dL (30-55); Mean Corpuscular Hemoglobin 31.7 pg (27-33); Mean Corpuscular Volume 110.8 fl (82-101); Mean Platelet Volume 13.4 fL (7.4-10.4); Monocytes # 0.6 10^3/uL (0.2-0.9); Monocytes % 9.7 %; Neutrophils # 4.99 10^3/uL (1.8-7.7); Neutrophils % 83.9 %; Nucleated Red Blood Cells % 0 %; Platelet Count 31 10^3/cmm (157-399); Red Cell Distribution Width 21.8 % (12.1-15.1); White Blood Count 5.95 10^3/uL (3.29-11.43)
[2023-03-13 06:44] LABS: Alanine Aminotransferase 66 U/L (0-41); Albumin Level 3.3 g/dL (3.5-5.2); Alkaline Phosphatase 240 U/L (40-130); Anion Gap 18.1 (5-19); Aspartate Amino Transferase 137 U/L (0-40); Blood Urea Nitrogen 37 mg/dL (8-23); Calcium 8.6 mg/dL (8.5-10.5); Carbon Dioxide 26 mmol/L (22-29); Chloride 102 mmol/L (98-107); Globulin 1.8 g/dL (1.3-4.6); Glomerular Filtration Rate 50.1 mL/min (90-130); Glucose 255 mg/dL (65-115); Magnesium 1.9 mg/dL (1.7-2.3); Osmolality Calculated 311 mOsm/kg (285-295); Potassium 4.1 mmol/L (3.5-5.1); Sodium 142 mmol/L (136-145); Total Bilirubin 1.9 mg/dL (0.15-1.2); Total Protein 5.1 g/dL (6.6-8.7)
[2023-03-13 06:47] LABS: Slide Review Slide Review Perform
[2023-03-13 08:25] LABS: Glucose Point of Care 252 mg/dL (70-110)
--- NOTE | 2023-03-13 09:04 | XR_ITS ---
WS: [id number] PORTABLE CHEST HISTORY: follow up COMPARISON: 03/10/2023 Lung volumes are decreased. Bilateral moderate pulmonary congestion. There is pulmonary edema central ly with small layering bilateral pleural effusions. No pneumothorax. Pleural effusions have slightly improved. Cardiac size: Mildly enlarged cardiac silhouette. Mediastinum/Aorta: Very mildly prominent mediastinum on the basis of positioning. Prior CABG. No osseous abnormality seen. Cervical fusion hardware. Right-sided PICC line. IMPRESSION: 1. Mild to moderate pulmonary edema with small layering bilateral pleural effusions. 2. Slightly improved aeration at the LEFT lung base. Pleural effusions have slightly improved
[2023-03-13] MEDS: LORazepam 2 mg/mL INJ 1 mL 1 MG IVP (09:38)
[2023-03-13] MEDS: lanolin oint 7 gm 1 APPLIC TOPICAL (09:51)
--- NOTE | 2023-03-13 09:53 | CT_ITS ---
WS: [id number] CT HEAD TECHNIQUE: Noncontrast CT of the head obtained from the skullbase to the vertex. CLINICAL INFORMATION: altered mental status COMPARISON: 03/09/2023 DLP: 1102.[address] scans at [facility] use at least one of these dose optimization techniques: automated e xposure control; mA and/or kV adjustment per patient size (includes targeted exams where dose is matc hed to clinical indication); or iterative reconstruction. FINDINGS: No evidence of intracranial hemorrhage or mass effect. Ventricular system and basal cisterns are chavez nt. Mild small vessel changes with mild parenchymal volume loss. No extra-axial fluid collections. No evidence of mass or mass effect. Intracranial vascular calcification. Paranasal sinuses and mastoid air cells are well aerated. .Normal visualized soft tissues. IMPRESSION: 1. No evidence of intracranial hemorrhage or mass effect. 2. Mild small vessel changes. Mild parenchymal volume loss. 3. No acute intracranial findings.
--- NOTE | 2023-03-13 11:30 | PM.PN ---
Subjective Subjective: Patient is confused, agitated, stating he needs help however not able to tell us if he is in pain No tachycardia or hypotension Patient was given albumin Hyperglycemia We will request dietitian to start PPN Had a long discussion with the family, they are opting for palliative care they are not sure if they are ready for hospice yet I called [facility] and put patient on the waiting list there is a 5 to 7-day. They have not allowed me to talk with the physician stating that they would not allow me to speak with any physician without patient getting a potential bed number Vitals/I&O/Wt Last Vital Signs Temp 98.8 F 03/13/23 11:00 Pulse 84 03/13/23 11:00 Resp 24 H 03/13/23 11:00 BP 119/82 03/13/23 11:00 Pulse Ox 95 03/13/23 11:00 O2 Del Method Room Air 03/13/23 11:00 O2 Flow Rate 3 03/11/23 13:39 FiO2 24 03/12/23 18:00 03/12/23 03/13/23 03/13/23 22:59 06:59 14:59 Intake Total 235.284 / 542.609 216.716 / 759.325 409.052 / 409.052 Output Total 600 / 600 750 / 1350 Balance -364.716 / -57.391 -533.284 / -590.675 409.052 / 409.052 Weight last 48 hrs Weight 90.446 kg Weight 92.261 kg Physical Exam Narrative: Patient seems congested Lower extremity swelling present however slightly better as compared to Monday Still confused Able to move his extremities His pupils are equal in size Crackles on lung auscultation Patient is currently on room air Hemodynamically stable Abdomen soft Dependent edema sacral area Patient not able to follow commands however nonpurposeful movement of extremities noted S1, S2 Urinary Catheter Management: Coates: Cath Placed During This Visit: no Reason for Continuing Indwelling Catheter: Accurate Measurement of Urinary Output in Critically Ill Patients Data 03/13/23 06:04 03/13/23 06:04 A&P Assessment and plan (1) Thrombocytopenia: (2) Steroid-induced psychosis, with delusions: (3) CHF exacerbation: (4) Urinary tract infection: Qualifiers: Hematuria presence: without hematuria Urinary tract infection type: acute cystitis Qualified Code(s): N30.00 - Acute cystitis without hematuria (5) H/O neck surgery: (6) Acute metabolic encephalopathy: (7) Pneumonia of both lower lobes: Qualifiers: Pneumonia type: due to unspecified organism Qualified Code(s): J18.9 - Pneumonia, unspecified organism (8) Diabetes mellitus: Plan Had a lengthy discussion with the family, they are opting for palliative care at home they do not want [facility] I spoke with [facility] and put patient on the waiting list Patient is DNR/DNI Patient received albumin, currently hyperglycemic Discontinued steroids Continue antibiotics He is afebrile no leukocytosis His metabolic encephalopathy could be related to cancer related encephalopathy paraneoplastic syndrome He is being treated for UTI and pneumonia Getting IV Lasix for heart failure exacerbation EF is 17% Thrombocytopenia and anemia, repeated CT head today to rule out intracranial bleed, it is negative Patient has not eaten in the last 72 hours, will start PPN consult dietitian Poor prognosis Attestations Medical Necessity Statement*: Continue medical management Diagnoses Thrombocytopenia D69.6 Steroid-induced psychosis, with delusions F19.950 CHF exacerbation I50.9 Urinary tract infection N30.00 Hematuria presence: without hematuria Urinary tract infection type: acute cystitis H/O neck surgery Z98.890 Acute metabolic encephalopathy G93.41 Pneumonia of both lower lobes J18.9 Pneumonia type: due to unspecified organism Diabetes mellitus E11.9
[2023-03-13] MEDS: FUROsemide 10 mg/mL SDV 10mL 40 MG IVP (11:43)
--- NOTE | 2023-03-13 13:56 | PC.SOCIAL ---
Pg 2 IMM Explained to pt's family Pg 2 IMM. No questions voiced. Provided pt a copy. Initialed, dated, & timed a copy & placed in chart.
[2023-03-13] MEDS: LORazepam 2 mg/mL INJ 1 mL IVP ×2 (14:05→21:58)
--- NOTE | 2023-03-13 18:21 | PC.NURSE ---
Comfort care Dr. Ramirez and nurse discussed comfort care/hospice with patient and family. Family wants to take patient home on hospice.
[2023-03-13] MEDS: glycopyrrolate 0.2 mg/mL SDV 2 mL IV (20:13)
[2023-03-13] MEDS: morphine 4 mg/mL SDV 1 mL IVP ×2 (20:13→21:03)
[2023-03-13] MEDS: atropine 1% op soln 2 mL Btl 3 DROP SUBLINGUAL (22:12)
[2023-03-14] VITALS (9 sets, daily range): BP systolic 115–128; BP diastolic 73–89; PULSE 68–82; RESP 10–24; TEMP 37.1; O2SAT 91–99; BMI 27.6
[2023-03-14] MEDS: morphine 4 mg/mL SDV 1 mL IVP ×3 (00:48→03:45)
[2023-03-14] MEDS: lanolin oint 7 gm 1 APPLIC TOPICAL (00:56)
[2023-03-14] MEDS: glycopyrrolate 0.2 mg/mL SDV 2 mL IV ×2 (01:11→06:40)
[2023-03-14] MEDS: atropine 1% op soln 2 mL Btl 3 DROP SUBLINGUAL ×2 (03:16→07:32)
[2023-03-14] MEDS: LORazepam 2 mg/mL INJ 1 mL IVP ×4 (06:40→13:39)
[2023-03-14] MEDS: morphine 10 mg/0.5 mL oral liq UD SUBLINGUAL ×2 (11:18→13:32)
--- NOTE | 2023-03-14 11:35 | PM.DCS ---
Discharge Providers Date of Admission: 03/10/23 02:03 Date of Discharge: March 14, 2023 Attending Provider at Admission: Lisandra Salazar MD Attending Provider at Discharge: Rosalinda Ramirez MD Primary Care Provider: Annika Richardson APN Diagnoses at Discharge Discharge Diagnosis (1) Thrombocytopenia: Status: Acute (2) Steroid-induced psychosis, with delusions: Status: Acute (3) CHF exacerbation: Status: Acute (4) Urinary tract infection: Status: Acute Qualifiers: Hematuria presence: without hematuria Urinary tract infection type: acute cystitis Qualified Code(s): N30.00 - Acute cystitis without hematuria (5) H/O neck surgery: Status: Acute (6) Acute metabolic encephalopathy: Status: Acute (7) Pneumonia of both lower lobes: Status: Acute Qualifiers: Pneumonia type: due to unspecified organism Qualified Code(s): J18.9 - Pneumonia, unspecified organism (8) Diabetes mellitus: Status: Acute Reason for Visit Reason for Visit: LOW BLOOD SUGAR Hospital Course Hospital Course 68-year-old male with 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 We corrected his hyperglycemia with use of glucagon, dextrose and steroids but his confusion never improved, he could not eat on his own because of his metabolic encephalopathy, he was kept on antibiotics, CT head was repeated because of drop in platelets, no signs of intracranial bleed, we were concerned about paraneoplastic syndrome and CSF involvement with his underlying cancer however family decided against platelet transfusion and a lumbar puncture. He was evaluated by neurologist as well. [facility] was contacted. Because of worsening of functional status, patient not being able to eat on his own, confusion, labored breathing family decided to opt for hospice care at home, they do not want vancomycin at the time of discharge, hospital bed has been provided. Multiple family meetings were conducted throughout hospitalization. Patient was kept on antibiotics, he remained afebrile without significant leukocytosis. He does have low EF EF of 17% with anasarca, pancytopenia related to chemotherapy, I did tell the family that they can rescind hospice option if patient shows any signs of recovery including communicating coherently with the family and able to eat and asking for food. Guarded prognosis: Comfort measures started 9/18 Physical Exam Narrative: Patient is confused GCS 9, Lower extremity swelling Signs of anasarca improving with diuretics Not able to participate with verbal commands Abdomen soft, patient is on room air with labored breathing Urinary Catheter Management: Coates: Cath Placed During This Visit: no Reason for Continuing Indwelling Catheter: Accurate Measurement of Urinary Output in Critically Ill Patients Discharge Data Studies Completed and Pending Completed Studies During Hospitalization Category Date Time Status CT head wo con* [id number] Routine Cat Scan 03/13/23 09:[address] head wo con* [id number] Stat Cat Scan 03/10/23 00:04 Completed XR chest 1V portable [id number] Routine Exams 03/13/23 09:04 Completed XR chest 1V portable [id number] Stat Exams 03/10/23 00:07 [place] [id number] Routine Ultrasound 03/11/23 09:29 Completed Pending at discharge Category Date Time Status Blood Culture Stat Lab 03/10/23 01:03 Results Radiology Impressions Venous Duplex 03/11/23 09:29 IMPRESSION: No evidence of deep vein thrombosis. Laboratory Results WBC 5.95 10^3/uL (3.29-11.43) 03/13/23 06:04 RBC 2.40 10^6/uL (3.85-5.65) L 03/13/23 06:04 Hgb 7.60 g/dL (11.27-16.99) L 03/13/23 06:04 Hct 26.6 % (37-53) L 03/13/23 06:04 MCV 110.8 fl (82-101) H 03/13/23 06:04 MCH 31.7 pg (27-33) 03/13/23 06:04 MCHC 28.6 g/dL (30-55) L 03/13/23 06:04 RDW 21.8 % (12.1-15.1) H 03/13/23 06:04 Plt Count 31 10^3/cmm (157-399) L 03/13/23 06:04 MPV 13.4 fL (7.4-10.4) H 03/13/23 06:04 Neut % (Auto) 83.9 % 03/13/23 06:04 Lymph % (Auto) 5.4 % 03/13/23 06:04 [place] % (Auto) 9.7 % 03/13/23 06:04 Eos % (Auto) 0.0 % 03/13/23 06:04 Baso % (Auto) 0.2 % 03/13/23 06:04 Neut # (Auto) 4.99 10^3/uL (1.8-7.7) 03/13/23 06:04 Lymph # (Auto) 0.3 10^3/uL (0.8-4.8) L 03/13/23 06:04 [place] # (Auto) 0.6 10^3/uL (0.2-0.9) 03/13/23 06:04 Eos # (Auto) 0.0 10^3/uL (0.0-0.8) 03/13/23 06:04 Baso # (Auto) 0.0 10^3/uL (0.0-0.1) 03/13/23 06:04 Nucleated RBC % (auto) 0 % 03/13/23 06:04 Nucleated RBCs # 0.0 /100WBC 03/13/23 06:04 PT 15.30 SECONDS (12.1-14.9) H 03/11/23 04:04 INR 1.17 (0.8-1.2) 03/11/23 04:04 APTT 35.3 SECONDS (23.9-36.7) 03/11/23 04:04 Sodium 142 mmol/L (136-145) 03/13/23 06:04 Potassium 4.1 mmol/L (3.5-5.1) 03/13/23 06:04 Chloride 102 mmol/L (98-107) 03/13/23 06:04 Carbon Dioxide 26 mmol/L (22-29) 03/13/23 06:04 Anion Gap 18.1 (5-19) 03/13/23 06:04 BUN 37 mg/dL (8-23) H 03/13/23 06:04 Creatinine 1.4 mg/dL (0.7-1.2) H 03/13/23 06:04 GFR Calculation 50.1 mL/min (90-130) L 03/13/23 06:04 Glucose 255 mg/dL (65-115) H 03/13/23 06:04 POC Glucose 252 mg/dL (70-110) H 03/13/23 08:16 Estimat Average Glucose 100 03/10/23 00:46 Hemoglobin A1c 5.1 % (4.0-6.0) 03/10/23 00:46 Calculated Osmolality 311 mOsm/kg (285-295) H 03/13/23 06:04 Lactic Acid 1.6 mmol/L (0.5-2.2) 03/11/23 04:04 Lactic Acid (Sepsis) 2.4 mmol/L (0.5-2.2) H 03/10/23 03:46 Calcium 8.6 mg/dL (8.5-10.5) 03/13/23 06:04 Magnesium 1.9 mg/dL (1.7-2.3) 03/13/23 06:04 Total Bilirubin 1.9 mg/dL (0.15-1.2) H 03/13/23 06:04 AST 137 U/L (0-40) H 03/13/23 06:04 ALT 66 U/L (0-41) H 03/13/23 06:04 Alkaline Phosphatase 240 U/L (40-130) H 03/13/23 06:04 C-Reactive Protein 74.3 mg/L (0.0-4.9) H 03/10/23 00:46 NT-Pro-B Natriuret Pep 86613 pg/mL (0-125) H 03/11/23 04:04 Total Protein 5.1 g/dL (6.6-8.7) L 03/13/23 06:04 Albumin 3.3 g/dL (3.5-5.2) L 03/13/23 06:04 Globulin 1.8 g/dL (1.3-4.6) 03/13/23 06:04 Procalcitonin 2.41 ng/mL (0-0.5) H 03/11/23 04:04 TSH 3.23 uIU/mL (0.27-4.20) 03/10/23 00:46 Random Cortisol 35.72 ug/dL (2.47-19.5) H 03/12/23 03:05 Urine Color Yellow (Yellow) 03/10/23 00:26 Urine Appearance Sl hazy (CLEAR) A 03/10/23 00:26 Urine pH 5 (5-7) 03/10/23 00:26 Ur Specific Addis 1.015 (1.005-1.030) 03/10/23 00:26 Urine Protein Neg (Negative) 03/10/23 00:26 Urine Glucose (UA) Norm (Normal) 03/10/23 00:26 Urine Ketones Negative (Negative) 03/10/23 00:26 Urine Blood Neg (Negative) 03/10/23 00:26 Urine Nitrate Negative (Negative) 03/10/23 00:26 Urine Bilirubin Neg (Negative) 03/10/23 00:26 Urine Urobilinogen Neg mg/dL (Negative) 03/10/23 00:26 Ur Leukocyte Esterase Trace (Negative) H 03/10/23 00:26 Urine RBC None /hpf (0-2) 03/10/23 00:26 Urine WBC 0-4 /hpf (0-5) H 03/10/23 00:26 Ur Squamous Epith Cells 0-4 /hpf (0-5) H 03/10/23 00:26 Amorphous Sediment Not Reportable 03/10/23 00:26 Urine Bacteria 1+ /hpf (NONE) H 03/10/23 00:26 Urine Mucus 2+ /hpf 03/10/23 00:26 Urine Yeast 3+ /hpf H 03/10/23 00:26 Vancomycin Trough 22.3 ug/mL (10-15) H 03/11/23 17:11 Urine Opiates Screen Positive ng/mL (Negative) H 03/10/23 00:26 Ur Barbiturates Screen Negative ng/mL (Negative) 03/10/23 00:26 Ur Phencyclidine Scrn Negative ng/mL (Negative) 03/10/23 00:26 Ur Amphetamines Screen Negative ng/mL (Negative) 03/10/23 00:26 U Benzodiazepines Scrn Positive ng/mL (Negative) H 03/10/23 00:26 Urine Cocaine Screen Negative ng/mL (Negative) 03/10/23 00:26 U Marijuana (THC) Screen Positive ng/mL (Negative) H 03/10/23 00:26 Vitals Last Vital Signs Temp 98.8 F 03/14/23 00:00 Pulse 73 03/14/23 08:00 Resp 10 L 03/14/23 08:00 BP 121/76 03/14/23 08:00 Pulse Ox 96 03/14/23 08:00 O2 Del Method Room Air 03/14/23 08:00 O2 Flow Rate 3 03/11/23 13:39 FiO2 24 03/12/23 18:00 Discharge Plan Discharge Patient Disposition: Hospice - Home Condition: Critical Prescriptions: Continued atorvastatin 40 mg Tablet 40 mg PO BEDTIME lisinopril 20 mg Tablet 20 mg PO DAILY Senna-S 8.6-50 mg Tablet 1 tab-cap PO DAILY PRN (Reason: Constipation) dronabinol 2.5 mg Capsule 2.5 mg PO BID Rx Instructions: administer before lunch and evening meal/dinner lorazepam 0.5 mg Tablet 0.5 mg PO BEDTIME PRN (Reason: Anxiety) tamsulosin 0.4 mg Capsule 0.8 mg PO 1700 vancomycin in 0.9 % sodium chl 1.25 gram/250 mL Solution 1 g IV Q24H potassium chloride 20 mEq Tablet Extended Release 20 meq PO DAILY Discontinued glimepiride 2 mg tablet 2 mg PO DAILY furosemide 40 mg Tablet 40 mg PO DAILY tizanidine 4 mg Tablet 4 mg PO Q6H PRN (Reason: Muscle Spasm) hydrocodone-acetaminophen 10-325 mg Tablet 1 tab PO Q6H PRN (Reason: Pain) aspirin 81 mg Tablet,Delayed Release (Dr/Ec) 81 mg PO DAILY MagOx 400 mg (241.3 mg magnesium) Tablet 800 mg PO DAILY trazodone 100 mg Tablet 100 mg PO BEDTIME pantoprazole 40 mg Tablet,Delayed Release (Dr/Ec) 40 mg PO DAILY metformin 1,000 mg Tablet 1,000 mg PO BID gabapentin 300 mg Capsule 600 mg PO Q8H folic acid 1 mg Tablet 1 mg PO DAILY Florastor 250 mg Capsule 250 mg PO BID Rx Instructions: 2x daily for 20days naloxone 4 mg/actuation [place],Non-Aerosol 4 mg INTRANASAL Q3M PRN (Reason: overdose) Rx Instructions: spray 1 dose into ONE nostril; alternate nostrils w each dose until help arrives Discharge Orders: Discharge Order (Routine); Ordered 03/14/23 Ordered By: Rosalinda Ramirez Referrals: Annika Richardson APN [Primary Care Provider] - Patient Instructions: Hospice Care Discharge Attestations Time Spent in Discharge Care*: greater than 30 min Quality Metrics Clinical Quality Measures [ No reported AMI, CVA or VTE this stay] Coding Level of Care Code Acute Code for Chg Fwd Diagnoses Thrombocytopenia D69.6 Steroid-induced psychosis, with delusions F19.950 CHF exacerbation I50.9 Urinary tract infection N30.00 Hematuria presence: without hematuria Urinary tract infection type: acute cystitis H/O neck surgery Z98.890 Acute metabolic encephalopathy G93.41 Pneumonia of both lower lobes J18.9 Pneumonia type: due to unspecified organism Diabetes mellitus E11.9
--- NOTE | 2023-03-14 13:02 | PC.NURSE ---
Discharge instructions given to patient and family. Meds to bed. [facility] called for transport.
--- NOTE | 2023-03-14 14:23 | PC.NURSE ---
[facility] here to transport patient home. Patient's family called and notified.
== END 2023-03-14 14:24 | disposition hospice, home (50) | DRG 637 ==
LOC: ER 03-10 02:03 → CSU 03-10 02:37 → ICU 03-11 14:14
PROVIDERS: Internal Medicine; Student in an Organized Health Care Education/Training Program; Admitting Provider Internal Medicine; Emergency Provider Emergency Medicine; PCP Nurse Practitioner Family; Visit Provider Internal Medicine
DX: E11.649 Type 2 diabetes mellitus with hypoglycemia without coma (principal); D61.810 Antineoplastic chemotherapy induced pancytopenia; G93.41 Metabolic encephalopathy; I50.21 Acute systolic (congestive) heart failure; J18.9 Pneumonia, unspecified organism; C34.90 Malignant neoplasm of unspecified part of unspecified bronchus or lung; C79.51 Secondary malignant neoplasm of bone; F23 Brief psychotic disorder; N30.00 Acute cystitis without hematuria; Z51.5 Encounter for palliative care; T45.1X5A Adverse effect of antineoplastic and immunosuppressive drugs, initial encounter; Z79.899 Other long term (current) drug therapy; I25.10 Atherosclerotic heart disease of native coronary artery without angina pectoris; Z95.1 Presence of aortocoronary bypass graft; F17.200 Nicotine dependence, unspecified, uncomplicated; E78.5 Hyperlipidemia, unspecified; I11.0 Hypertensive heart disease with heart failure; D69.6 Thrombocytopenia, unspecified; Z92.3 Personal history of irradiation; N31.9 Neuromuscular dysfunction of bladder, unspecified; Z96.0 Presence of urogenital implants; Z66 Do not resuscitate; D64.9 Anemia, unspecified; T38.0X5A Adverse effect of glucocorticoids and synthetic analogues, initial encounter; I71.40 Abdominal aortic aneurysm, without rupture, unspecified; E87.70 Fluid overload, unspecified
CPT/HCPCS: 36415; 36416; 70450; 71045; 80048; 80053; 80202; 80306; 81001; 82533; 82962; 83036; 83605; 83735; 83880; 84145; 84443; 85025; 85610; 85730; 86140; 87040; 87086; 93005; 93970; 94640; 94660; 94664; 96360; 96361; 96372; 96376; 99285; A4570; J0692; J1170; J1610; J1650; J1720; J1940; J2060; J2270; J3370; J3490; J7050; P9046; Q0167